=== PATIENT | male | born 1960 | race Caucasian/White ===

== ENCOUNTER → 2023-12-17 07:43 | Outpatient (REF) | payer OTHER, SELFPAY ==
[2023-12-17 08:27] LABS: % Immature Granulocytes 0.3 % (0-0.5); % Lymphocytes 26.6 % (20.5-51.1); % Monocytes 8.2 % (1.7-9.3); % Neutrophils 61.9 % (42.2-75.2); Absolute Basophils 0.1 10^3/uL (0-0.2); Absolute Eosinophils 0.2 10^3/uL (0-0.7); Absolute Lymphocytes 2.9 10^3/uL (1.2-3.4); Absolute Monocytes 0.9 10^3/uL (0.1-0.6); Absolute Neutrophils 6.8 10^3/uL (1.4-6.5); Hematocrit 46.8 % (39.0-52.0); Hemoglobin 16.1 g/dL (13.0-18.0); Mean Corp Hgb Conc. 34.4 g/dL (33.0-37.0); Mean Corpuscular Hgb 30.7 pg (27.0-31.0); Mean Corpuscular Volume 89.3 fL (80.0-94.0); Mean Platelet Volume 8.4 fL (7.4-10.4); Nucleated Red Blood Cells % 0 % (-); Platelet Count 312 10^3/uL (130-400); Red Blood Cell Count 5.24 10^6/uL (4.70-6.10); Red Cell Dist. Width 14.6 % (11.5-14.5)
[2023-12-17 08:37] LABS: ALT (SGPT) 51 U/L (0-50); AST (SGOT) 39 U/L (17-59); Albumin 4.3 g/dl (3.5-5.0); Alkaline Phosphatase 71 U/L (38-126); Blood Urea Nitrogen 24 mg/dl (9-20); Carbon Dioxide 27 mmol/L (22-30); Chloride 104 mmol/L (98-107); Creatine Phosphokinase 54 U/L (55-170); Glucose 133 mg/dl (70-99); Potassium 4.2 mmol/L (3.5-5.1); Sodium 137 mmol/L (135-145); Total Bilirubin 0.6 mg/dl (0.2-1.3); Total Protein 7.2 g/dl (6.3-8.2); eGFR > 60.00
[2023-12-17 09:07] LABS: Erythrocyte Sed Rate 15 mm/hour (0-20)
[2023-12-18 22:01] LABS: Thyroglobulin Antibodies 1.3 IU/mL (0.0-4.0); Thyroid Peroxidase Ab (TPO) 111.4 IU/mL (0.0-9.0)
[2023-12-19 05:35] LABS: F-Actin Antibody IgG 16 Units (0-19); Mitochondrial M2 Ab, IgG 92.4 Units (0.0-24.9)
[2023-12-19 05:41] LABS: CCP Antibody IgG/IgA 121 Units (0-19)
[2023-12-19 12:49] LABS: SSA 52 (Ro)(ENA) Ab, IgG 2 AU/mL (0-40); SSA 60 (Ro)(ENA) Ab, IgG 1 AU/mL (0-40); SSB (La)(ENA) Ab, IgG 6 AU/mL (0-40); Smith (ENA) Antibody, IgG 2 AU/mL (0-40)
[2023-12-19 19:37] LABS: ds-DNA Ab, IgG Reflex To Titer 41 IU (0-24)
== END ==
LOC: REG 07:43
PROVIDERS: ATTENDING PHYSICIAN Internal Medicine Cardiovascular Disease
DX: R74.8 Abnormal levels of other serum enzymes (principal); R76.8 Other specified abnormal immunological findings in serum
CPT/HCPCS: 36415; 80053; 82550; 85025; 85652; 86015; 86140; 86200; 86225; 86235; 86256; 86376; 86381; 86800

== ENCOUNTER → 2024-03-08 06:57 | Outpatient (REF) | payer OTHER, SELFPAY ==
[2024-03-08 07:18] LABS: % Basophils 0.9 % (0-2); % Immature Granulocytes 0.4 % (0-0.5); % Lymphocytes 30.2 % (20.5-51.1); % Neutrophils 57.5 % (42.2-75.2); Absolute Basophils 0.1 10^3/uL (0-0.2); Absolute Eosinophils 0.3 10^3/uL (0-0.7); Absolute Immature Granulocytes 0.1 10^3/uL (0-0.05); Absolute Monocytes 1.2 10^3/uL (0.1-0.6); Absolute Neutrophils 7.6 10^3/uL (1.4-6.5); Hematocrit 44.4 % (39.0-52.0); Hemoglobin 15.2 g/dL (13.0-18.0); Mean Corp Hgb Conc. 34.2 g/dL (33.0-37.0); Mean Corpuscular Hgb 30.9 pg (27.0-31.0); Mean Corpuscular Volume 90.2 fL (80.0-94.0); Mean Platelet Volume 8.7 fL (7.4-10.4); Nucleated Red Blood Cells % 0 % (-); Platelet Count 304 10^3/uL (130-400); Red Blood Cell Count 4.92 10^6/uL (4.70-6.10); Red Cell Dist. Width 14.1 % (11.5-14.5); White Blood Cell Count 13.3 10^3/uL (4.8-10.8)
[2024-03-08 07:48] LABS: ALT (SGPT) 62 U/L (0-50); AST (SGOT) 41 U/L (17-59); Alkaline Phosphatase 75 U/L (38-126); Blood Urea Nitrogen 20 mg/dl (9-20); Calcium 9.9 mg/dl (8.4-10.2); Carbon Dioxide 24 mmol/L (22-30); Chloride 105 mmol/L (98-107); Glucose 137 mg/dl (70-99); HDL Cholesterol 54 mg/dl; LDL Cholesterol, Calculated 43 mg/dl; Potassium 4.2 mmol/L (3.5-5.1); Sodium 139 mmol/L (135-145); Total Bilirubin 0.8 mg/dl (0.2-1.3); Total Cholesterol 116 mg/dl (50-199); Total Protein 6.9 g/dl (6.3-8.2); Triglyceride 95 mg/dl (10-149); Very Low Density Lipoprotein 19 mg/dl (0-30); eGFR > 60.00
[2024-03-08 09:22] LABS: Glycohemoglobin (HgbA1c) 6.8 % (4.0-5.6)
== END ==
LOC: REG 06:57
PROVIDERS: ATTENDING PHYSICIAN Physician Assistant; FAMILY PHYSICIAN Nurse Practitioner Family
DX: E11.9 Type 2 diabetes mellitus without complications (principal)
CPT/HCPCS: 36415; 80053; 80061; 83036; 85025

== ENCOUNTER → 2024-04-22 07:57 | Outpatient (REF) | payer OTHER, SELFPAY | LOC: RAD 07:57 | PROVIDERS: ATTENDING PHYSICIAN Surgery Vascular Surgery; FAMILY PHYSICIAN Nurse Practitioner Family | DX: I74.5 Embolism and thrombosis of iliac artery (principal); I77.9 Disorder of arteries and arterioles, unspecified | CPT/HCPCS: 93922; 93925; 93978 ==

== ENCOUNTER → 2024-05-06 07:29 | Outpatient (REF) | payer OTHER, SELFPAY ==
[2024-05-06 08:37] LABS: % Basophils 0.8 % (0-2); % Immature Granulocytes 0.4 % (0-0.5); % Lymphocytes 27.8 % (20.5-51.1); % Monocytes 8.2 % (1.7-9.3); % Neutrophils 60.8 % (42.2-75.2); Absolute Basophils 0.1 10^3/uL (0-0.2); Absolute Eosinophils 0.2 10^3/uL (0-0.7); Absolute Lymphocytes 3.1 10^3/uL (1.2-3.4); Absolute Monocytes 0.9 10^3/uL (0.1-0.6); Absolute Neutrophils 6.9 10^3/uL (1.4-6.5); Hematocrit 43.8 % (39.0-52.0); Hemoglobin 15.3 g/dL (13.0-18.0); Mean Corp Hgb Conc. 34.9 g/dL (33.0-37.0); Mean Corpuscular Hgb 31.2 pg (27.0-31.0); Mean Corpuscular Volume 89.4 fL (80.0-94.0); Mean Platelet Volume 8.9 fL (7.4-10.4); Nucleated Red Blood Cells % 0 % (-); Platelet Count 273 10^3/uL (130-400); Red Cell Dist. Width 14.2 % (11.5-14.5); White Blood Cell Count 11.3 10^3/uL (4.8-10.8)
[2024-05-06 08:53] LABS: ALT (SGPT) 40 U/L (0-50); AST (SGOT) 30 U/L (17-59); Alkaline Phosphatase 66 U/L (38-126); Blood Urea Nitrogen 17 mg/dl (9-20); Calcium 9.9 mg/dl (8.4-10.2); Carbon Dioxide 24 mmol/L (22-30); Chloride 106 mmol/L (98-107); Glucose 155 mg/dl (70-99); Potassium 4.4 mmol/L (3.5-5.1); Sodium 138 mmol/L (135-145); Total Bilirubin 0.5 mg/dl (0.2-1.3); Total Protein 6.7 g/dl (6.3-8.2); eGFR > 60.00
[2024-05-06 09:05] LABS: Erythrocyte Sed Rate 18 mm/hour (0-20)
[2024-05-09 10:10] LABS: Mitochondrial M2 Ab, IgG 118.7 Units (0.0-24.9)
== END ==
LOC: REG 07:29
PROVIDERS: ATTENDING PHYSICIAN Internal Medicine Rheumatology; FAMILY PHYSICIAN Nurse Practitioner Family
DX: K75.4 Autoimmune hepatitis (principal); R74.8 Abnormal levels of other serum enzymes; R76.8 Other specified abnormal immunological findings in serum
CPT/HCPCS: 36415; 80053; 85025; 85652; 86140; 86225; 86381

== ENCOUNTER → 2024-07-19 07:07 | Outpatient (REF) | payer OTHER, SELFPAY ==
[2024-07-19 07:34] LABS: % Basophils 0.8 % (0-2); % Eosinophils 2.2 % (0-6); % Immature Granulocytes 0.5 % (0-0.5); % Lymphocytes 30.8 % (20.5-51.1); % Monocytes 9.7 % (1.7-9.3); Absolute Basophils 0.1 10^3/uL (0-0.2); Absolute Eosinophils 0.3 10^3/uL (0-0.7); Absolute Immature Granulocytes 0.1 10^3/uL (0-0.05); Absolute Lymphocytes 3.6 10^3/uL (1.2-3.4); Absolute Monocytes 1.1 10^3/uL (0.1-0.6); Absolute Neutrophils 6.6 10^3/uL (1.4-6.5); Hematocrit 45.8 % (39.0-52.0); Hemoglobin 15.7 g/dL (13.0-18.0); Mean Corp Hgb Conc. 34.3 g/dL (33.0-37.0); Mean Corpuscular Hgb 30.8 pg (27.0-31.0); Mean Corpuscular Volume 89.8 fL (80.0-94.0); Nucleated Red Blood Cells % 0 % (-); Platelet Count 239 10^3/uL (130-400); Red Cell Dist. Width 14.9 % (11.5-14.5); White Blood Cell Count 11.8 10^3/uL (4.8-10.8)
[2024-07-19 08:36] LABS: ALT (SGPT) 47 U/L (0-50); AST (SGOT) 45 U/L (17-59); Albumin 4.2 g/dl (3.5-5.0); Alkaline Phosphatase 61 U/L (38-126); Blood Urea Nitrogen 20 mg/dl (9-20); Calcium 9.7 mg/dl (8.4-10.2); Carbon Dioxide 24 mmol/L (22-30); Chloride 100 mmol/L (98-107); Glucose 163 mg/dl (70-99); Potassium 4.4 mmol/L (3.5-5.1); Sodium 139 mmol/L (135-145); Total Bilirubin 0.7 mg/dl (0.2-1.3); eGFR > 60.00
[2024-07-19 09:23] LABS: Glycohemoglobin (HgbA1c) 6.8 % (4.0-5.6)
== END ==
LOC: REG 07:07
PROVIDERS: ATTENDING PHYSICIAN Physician Assistant; FAMILY PHYSICIAN Nurse Practitioner Family
DX: E11.65 Type 2 diabetes mellitus with hyperglycemia (principal)
CPT/HCPCS: 36415; 80053; 83036; 85025

== ENCOUNTER 2024-09-27 16:09 | Inpatient (IN) | payer OTHER, SELFPAY ==
[2024-09-27] VITALS (20 sets, daily range): BP systolic 111–157; BP diastolic 62–105; BMI 22.7
--- NOTE | 2024-09-27 09:40 | ED.GENMED ---
ED Provider Triage
<Radha Hinton PA-C - Last Filed: 09/27/24 16:16>
-
Patient seen by provider in Triage?: Seen in Triage
Attestation: A medical screening examination has been initiated by a qualified medical provider. Based on the assessment performed at this time, it has been determined that an emergent medical condition may exist and the patient has been informed
that further medical evaluation and possible additional diagnostic testing may be needed.
HPI: 64yoM here with L leg pain. Did yard work 4 days ago. Started with leg cramping the next day. Pain mostly in foot but having calf pain. Hx of DVT in 2022 requiring thrombectomy, no longer on anticoagulation. No CP/SOB.
GENERAL: Alert , in no apparent distress
EYE: No visual abnormalities.
NECK: Trachea midline
ENT: No visible abnormalities.
LUNGS: No acute respiratory distress
NEUROLOGICAL: Alert and oriented
SKIN: Skin intact. No visible changes.
MUSCULOSKELETAL: Moving extremities normally
PSYCH: Normal and appropriate interaction.
This is a medical evaluation conducted in person to initiate diagnostic evaluation and provide initial therapeutics. Please see further documentation by the treating clinician.
Venous duplex and L foot x-rays ordered.
History of Present Illness
<Radha Hinton PA-C - Last Filed: 09/27/24 16:16>
General
Chief Complaint: Musculo-Skeletal Complaint
Source: patient
Time Seen by Provider: 09/27/24 10:52
History of Present Illness
History of Present Illness:
64yoM with a history of peripheral artery disease presenting for evaluation of left leg and foot pain x 3 days. Patient was chopping wood prior to his pain starting. He initially had a cramping pain in his left lower leg. His pain is now
primarily in the left although he continues to have some discomfort in the calf. He denies any paresthesias. No chest pain or shortness of breath. Patient has a history of peripheral artery disease and underwent 'cutdown left common femoral
artery, Left iliac thromboembolectomy, Left lower extremity thromboembolectomy' in 2022. He is not longer on anticoagulation.
Past History
<Radha Hinton PA-C - Last Filed: 09/27/24 16:16>
Past History
ED Past Medical History: None
ED Past Surgical History: None
Social History
Tobacco: Smoker
Personal:
Living: with family
Employment: Employed
Phy Exam
<Radha Hinton PA-C - Last Filed: 09/27/24 16:16>
General Physical Exam
General Presentation: well appearing and no apparent distress
General age: appears stated age
General Skin: warm and dry
General Habitus: normal
General Mental: alert
General Hydration: appears well hydrated
ENT Exam
ENT Exam: normocephalic
Pulmonary Exam
Pulmonary Exam: no respiratory distress
[place] Coma Scale
Eye Opening: Spontaneous
Verbal Response: Oriented
Motor Response: Obeys Commands
GCS Total Score: 15
Musculoskeletal Exam
Musculoskeletal Exam: other (L foot: Somewhat cool to touch. Sensation and motor function intact. Unable to obtain DP or PT pulse with doppler. No pitting edema to extremity.)
Skin Exam
Skin Exam: normal color and warm/dry
Psychiatric Exam
Psychiatric Exam: normal mood/affect
Course
<Radha Hinton PA-C - Last Filed: 09/27/24 16:16>
Orders/Labs/Results
Orders:
Orders
09/27/24 09:43
CR Foot - Left Min 3 Views Urgent
Comment:
Reason For Exam: Pain
Venous Doppler Lwr Ext Left [US Periph Venous LOWER Ext LT] Urgent
Comment:
Reason For Exam: L calf pain
09/27/24 11:58
CT Abd Aorta Angio W/ Run Off Urgent
Comment:
Reason For Exam: L leg pain pain, hx of PAD
09/27/24 12:08
Complete Blood Count/With Diff Urgent
Comprehensive Metabolic Panel Urgent
PTT Urgent
Prothrombin Time Urgent
09/27/24 12:24
Vascular Surgery Consult Urgent
Consulting Provider: Mansoor Wilkerson III
Was physician already notified: Yes
09/27/24 13:46
Heparin 6,000 units IV NOW STA
Pharmacy Request to Place See Dose Instructions PO NOW STA
Discontinue all Active Warfarin orders?: Yes
Nursing to Place Non Medication Order As Directed
Physician Order: PTT 6 hours after initial start of Heparin infusion
Above order entered?: Yes
09/27/24 13:58
Heparin 6,000 units IV PRN PRN
09/27/24 13:59
Heparin 3,000 units IV PRN PRN
09/27/24 14:00
Heparin 09353 Units/250 ml 25,000 units in 250 ml IV PER PROTOCOL
Weight to be used for heparin protocol in kilograms (kg):: 75.4
Protocol:: DVT/PE
PTT Goal Range to be used:: PTT 73 to 111 seconds
Order type:: Initial
INITIAL Infusion Dose (UNITS/KG/hr) & then follow protocol:: 18 units/kg/hr
Infusion Dose in UNITS/hr & then follow protocol (UNITS/hr):: 1,400
INFUSION RATE in mL/hr & then follow protocol (mL/hr):: 14
For DVT/PE algorithm, re-bolus for low PTT?: Yes
PTT less than or equal to 64 seconds:: Re-bolus 80 units/kg (max 10,000units). Increase by 300 units/hr
(+ 3mL/hr)
PTT 64.1 to 72.9 seconds:: Re-bolus 40 units/kg (max 5,000 units). Increase by 200 units/hr
(+ 2mL/hr)
PTT 73 to 111 seconds:: Target Range. No change in rate.
PTT 111.1 to 130.9 seconds:: Decrease rate by 200 units/hr (- 2 mL/hr)
PTT 131 to 199.9 seconds:: HOLD for 1 hr. Then decrease by 200 units/hr (- 2mL/hr)
PTT greater than or equal to 200 seconds:: HOLD for 2 hrs & Notify Provider. Then decrease by 300 units/hr
(- 3mL/hr)
Lab follow-up:: Each change, PTT q6h until 2 consecutive are therapeutic. Then
PTT daily.
Pharmacy Request to Place See Dose Instructions IV DIRECTED
09/27/24 14:51
Admit/Transfer Patient As Directed
Co-Sign Provider:
Level of Care: Inpatient admission
Assign to:: Medical/Surgical
Physician / Group: Irwin Smart
Diagnosis: occluded left iliac artery and stent
Reason for Hospitalization: occluded left iliac artery and stent
Expected length of stay greater than two midnights?: Yes
ELOS- Estimated Length of Stay in days: 3
I certify the patient meets the requirements for IP care: Yes
PRN Pain Medication Management As Directed
May give lesser potent ordered pain med per pt: Yes
preference::
Protocol:: Medication orders for pain may be administered in a
manner that supports deferring to patient preference
when the pt is:
- Requesting an ordered lesser potent pain medication.
Least to most potent pain medications are defined
as: acetaminophen < NSAID < tramadol < opioids
(morphine, oxycodone, hydromorphone).
- Requesting a lesser dose of the same medication IF
ORDERED.
- Requesting a less intrusive route of administration
if both routes are prescribed by the provider (PO <
IV).
09/27/24 14:52
Code Status As Directed
Resuscitation Status: Full Code
09/27/24 15:30
Fentanyl Citrate/Pf [Sublimaze] 100 mcg .ROUTE .STK-MED ONE
Midazolam HCl [Versed] 2 mg .ROUTE .STK-MED ONE
Propofol [Diprivan] 20 ml .ROUTE .STK-MED
Rocuronium [place] [Rocuronium] 50 mg .ROUTE .STK-MED ONE
09/27/24 15:31
Ondansetron Injectable [Zofran] 4 mg .ROUTE .STK-MED ONE
Ondansetron Injectable [Zofran] 4 mg .ROUTE .STK-MED ONE
Phenylephrine HCl/0.9% NaCl [Rubin-Synephrine] 1,000 mcg .ROUTE .STK-MED ONE
09/27/24 15:59
Heparin Sodium,Porcine/Ns/Pf [Heparin 2000 Units/1000 ml] 2,000 unit in 1,000 ml .ROUTE .STK-MED
Lidocaine HCl/Pf [Xylocaine-Mpf 1% Vial] 50 mg .ROUTE .STK-MED ONE
09/27/24 16:05
Alteplase 4 mg/16 mL in NSS at 1 mg/hr via INF CATH Alteplase [Cathflo/Activase] 4 mg 0.9% Sodium Chloride 50 ml [Nss] 12 ml Syringe [Syringe-Pump] 0 ml INF CATH Q4H
09/27/24 20:27
PTT Routine
Abnormal Lab Results
09/27/24
12:08
WBC 13.2 H 10^3/uL
(4.8-10.8)
RBC 4.47 L 10^6/uL
(4.70-6.10)
MCH 32.4 H pg
(27.0-31.0)
Abs Immat Gran (auto) 0.1 H 10^3/uL
(0-0.05)
Absolute Neuts (auto) 9.2 H 10^3/uL
(1.4-6.5)
Absolute Monos (auto) 1.5 H 10^3/uL
(0.1-0.6)
Immature Gran % 0.7 H %
(0-0.5)
Lymphocytes % 17.5 L %
(20.5-51.1)
Monocytes % 11.1 H %
(1.7-9.3)
Creatinine 0.6 L mg/dL
(0.7-1.3)
Glucose 150 H mg/dl
(70-99)
09/27/24 12:08
09/27/24 12:08
Vital Signs
Initial and Last Documented VS:
Initial Vital Signs
Temp Pulse Resp BP Pulse Ox
98.4 F 114 20 157/105 99
09/27/24 09:40 09/27/24 09:40 09/27/24 09:40 09/27/24 09:40 09/27/24 09:40
Last Documented Vital Signs
Temp Pulse Resp BP Pulse Ox
98.4 F 91 18 137/79 99
09/27/24 09:40 09/27/24 14:54 09/27/24 14:54 09/27/24 14:54 09/27/24 14:54
<Dre Larson, DO - Last Filed: 09/27/24 12:08>
Orders/Labs/Results
Orders:
Orders
09/27/24 09:43
CR Foot - Left Min 3 Views Urgent
Comment:
Reason For Exam: Pain
Venous Doppler Lwr Ext Left [US Periph Venous LOWER Ext LT] Urgent
Comment:
Reason For Exam: L calf pain
09/27/24 11:58
CT Abd Aorta Angio W/ Run Off Urgent
Comment:
Reason For Exam: L leg pain pain, hx of PAD
09/27/24 12:08
Complete Blood Count/With Diff Urgent
Comprehensive Metabolic Panel Urgent
PTT Urgent
Prothrombin Time Urgent
09/27/24 12:24
Vascular Surgery Consult Urgent
Consulting Provider: Mansoor Wilkerson III
Was physician already notified: Yes
09/27/24 13:46
Heparin 6,000 units IV NOW STA
Pharmacy Request to Place See Dose Instructions PO NOW STA
Discontinue all Active Warfarin orders?: Yes
Nursing to Place Non Medication Order As Directed
Physician Order: PTT 6 hours after initial start of Heparin infusion
Above order entered?: Yes
09/27/24 13:58
Heparin 6,000 units IV PRN PRN
09/27/24 13:59
Heparin 3,000 units IV PRN PRN
09/27/24 14:00
Heparin 50702 Units/250 ml 25,000 units in 250 ml IV PER PROTOCOL
Weight to be used for heparin protocol in kilograms (kg):: 75.4
Protocol:: DVT/PE
PTT Goal Range to be used:: PTT 73 to 111 seconds
Order type:: Initial
INITIAL Infusion Dose (UNITS/KG/hr) & then follow protocol:: 18 units/kg/hr
Infusion Dose in UNITS/hr & then follow protocol (UNITS/hr):: 1,400
INFUSION RATE in mL/hr & then follow protocol (mL/hr):: 14
For DVT/PE algorithm, re-bolus for low PTT?: Yes
PTT less than or equal to 64 seconds:: Re-bolus 80 units/kg (max 10,000units). Increase by 300 units/hr
(+ 3mL/hr)
PTT 64.1 to 72.9 seconds:: Re-bolus 40 units/kg (max 5,000 units). Increase by 200 units/hr
(+ 2mL/hr)
PTT 73 to 111 seconds:: Target Range. No change in rate.
PTT 111.1 to 130.9 seconds:: Decrease rate by 200 units/hr (- 2 mL/hr)
PTT 131 to 199.9 seconds:: HOLD for 1 hr. Then decrease by 200 units/hr (- 2mL/hr)
PTT greater than or equal to 200 seconds:: HOLD for 2 hrs & Notify Provider. Then decrease by 300 units/hr
(- 3mL/hr)
Lab follow-up:: Each change, PTT q6h until 2 consecutive are therapeutic. Then
PTT daily.
Pharmacy Request to Place See Dose Instructions IV DIRECTED
09/27/24 14:51
Admit/Transfer Patient As Directed
Co-Sign Provider:
Level of Care: Inpatient admission
Assign to:: Medical/Surgical
Physician / Group: Irwin Smart
Diagnosis: occluded left iliac artery and stent
Reason for Hospitalization: occluded left iliac artery and stent
Expected length of stay greater than two midnights?: Yes
ELOS- Estimated Length of Stay in days: 3
I certify the patient meets the requirements for IP care: Yes
PRN Pain Medication Management As Directed
May give lesser potent ordered pain med per pt: Yes
preference::
Protocol:: Medication orders for pain may be administered in a
manner that supports deferring to patient preference
when the pt is:
- Requesting an ordered lesser potent pain medication.
Least to most potent pain medications are defined
as: acetaminophen < NSAID < tramadol < opioids
(morphine, oxycodone, hydromorphone).
- Requesting a lesser dose of the same medication IF
ORDERED.
- Requesting a less intrusive route of administration
if both routes are prescribed by the provider (PO <
IV).
09/27/24 14:52
Code Status As Directed
Resuscitation Status: Full Code
09/27/24 15:30
Fentanyl Citrate/Pf [Sublimaze] 100 mcg .ROUTE .STK-MED ONE
Midazolam HCl [Versed] 2 mg .ROUTE .STK-MED ONE
Propofol [Diprivan] 20 ml .ROUTE .STK-MED
Rocuronium [place] [Rocuronium] 50 mg .ROUTE .STK-MED ONE
09/27/24 15:31
Ondansetron Injectable [Zofran] 4 mg .ROUTE .STK-MED ONE
Ondansetron Injectable [Zofran] 4 mg .ROUTE .STK-MED ONE
Phenylephrine HCl/0.9% NaCl [Rubin-Synephrine] 1,000 mcg .ROUTE .STK-MED ONE
09/27/24 15:59
Heparin Sodium,Porcine/Ns/Pf [Heparin 2000 Units/1000 ml] 2,000 unit in 1,000 ml .ROUTE .STK-MED
Lidocaine HCl/Pf [Xylocaine-Mpf 1% Vial] 50 mg .ROUTE .STK-MED ONE
09/27/24 16:05
Alteplase 4 mg/16 mL in NSS at 1 mg/hr via INF CATH Alteplase [Cathflo/Activase] 4 mg 0.9% Sodium Chloride 50 ml [Nss] 12 ml Syringe [Syringe-Pump] 0 ml INF CATH Q4H
09/27/24 20:27
PTT Routine
Abnormal Lab Results
09/27/24
12:08
WBC 13.2 H 10^3/uL
(4.8-10.8)
RBC 4.47 L 10^6/uL
(4.70-6.10)
MCH 32.4 H pg
(27.0-31.0)
Abs Immat Gran (auto) 0.1 H 10^3/uL
(0-0.05)
Absolute Neuts (auto) 9.2 H 10^3/uL
(1.4-6.5)
Absolute Monos (auto) 1.5 H 10^3/uL
(0.1-0.6)
Immature Gran % 0.7 H %
(0-0.5)
Lymphocytes % 17.5 L %
(20.5-51.1)
Monocytes % 11.1 H %
(1.7-9.3)
Creatinine 0.6 L mg/dL
(0.7-1.3)
Glucose 150 H mg/dl
(70-99)
09/27/24 12:08
09/27/24 12:08
Vital Signs
Initial and Last Documented VS:
Initial Vital Signs
Temp Pulse Resp BP Pulse Ox
98.4 F 114 20 157/105 99
09/27/24 09:40 09/27/24 09:40 09/27/24 09:40 09/27/24 09:40 09/27/24 09:40
Last Documented Vital Signs
Temp Pulse Resp BP Pulse Ox
98.4 F 91 18 137/79 99
09/27/24 09:40 09/27/24 14:54 09/27/24 14:54 09/27/24 14:54 09/27/24 14:54
<Radha Hinton PA-C - Last Filed: 09/27/24 16:16>
MDM/Problems Addressed
Differential Diagnosis Includes:
64yoM here with L leg and foot pain x 3 days that started after chopping wood. Significant history of PAD with thrombectomy last year. L foot is cool to touch. Unable to obtain PT/DP pulse with Doppler. Differential diagnosis includes but is not
limited to: Arterial occlusion, DVT, musculoskeletal pain
Initial ED plan: Venous duplex obtained in triage which is negative for DVT. Left foot x-rays are negative for fracture. Will obtain labs, CTA with runoff, and vascular consult.
<Radha Hinton PA-C - Last Filed: 09/27/24 16:16>
*Critical Care Note
Total Time (30-74mins, 75-104mins- exclusive of procedures): Not Applicable
<Radha Hinton PA-C - Last Filed: 09/27/24 16:16>
Update Note
Update Note:
CTA reveals 'Occlusion of the left common iliac artery at its origin, involving the left common iliac artery stent. This occlusion extends throughout the left external iliac artery.' Patient evaluated by vascular surgery team. Heparin gtt initiated.
Plan for thrombectomy vs. lytic catheter placement. He was admitted for further management.
ED Attending Note
<Radha Hinton PA-C - Last Filed: 09/27/24 16:16>
-
Portions of this chart may have been created with voice recognition software.� Occasional wrong word or��sound alike� substitutions may have occurred due to the inherent limitations of voice recognition software.
<Dre Larson DO - Last Filed: 09/27/24 12:08>
ED Attending Note
Patient seen and examined by attending physician: Yes
I performed the substantive portion of visit, reviewed & personally made and approve the management plan that is documented in note by myself or LEHA.: Yes
ED Attending Note:
Seen with PA examined independently, prior records briefly reviewed diabetic hypertensive peripheral vascular disease status post thrombectomy by Dr. Wilkerson a few years ago presents with similar but not as severe complaints of his left lower
extremity calf anterior lower leg thigh and foot unable to appreciate a pulse in his foot appears slightly cool, will check labs CT angio,
Discharge Plan
Departure
Patient Disposition: Admit
Date of Disposition: 09/27/24
Time of Disposition: 13:52
Presentation/result/management discussed w/ accepting MD/DO: Hospitalist
Discharge Problem:
Occlusion of stent of peripheral artery
Interventions
Interventions:
*Risk Screen - Suicide Last Done: 09/27/24 12:24
*General Assessment Last Done: 09/27/24 12:24
*Neglect/Abuse Screening Last Done: 09/27/24 12:24
ED- Fall Risk Assessment Last Done: 09/27/24 16:03
*ED COVID-19 Vaccine History Last Done: 09/27/24 12:24
*Nursing Disposition Last Done: 09/27/24 16:03
ED-Musculoskeletal Assessment Last Done: 09/27/24 12:24
[2024-09-27 12:22] LABS: % Basophils 0.6 % (0-2); % Eosinophils 0.1 % (0-6); % Immature Granulocytes 0.7 % (0-0.5); % Lymphocytes 17.5 % (20.5-51.1); % Monocytes 11.1 % (1.7-9.3); Absolute Basophils 0.1 10^3/uL (0-0.2); Absolute Immature Granulocytes 0.1 10^3/uL (0-0.05); Absolute Lymphocytes 2.3 10^3/uL (1.2-3.4); Absolute Monocytes 1.5 10^3/uL (0.1-0.6); Absolute Neutrophils 9.2 10^3/uL (1.4-6.5); Hematocrit 41.7 % (39.0-52.0); Hemoglobin 14.5 g/dL (13.0-18.0); Mean Corp Hgb Conc. 34.8 g/dL (33.0-37.0); Mean Corpuscular Hgb 32.4 pg (27.0-31.0); Mean Corpuscular Volume 93.3 fL (80.0-94.0); Mean Platelet Volume 8.8 fL (7.4-10.4); Nucleated Red Blood Cells % 0 % (-); Platelet Count 230 10^3/uL (130-400); Red Blood Cell Count 4.47 10^6/uL (4.70-6.10); Red Cell Dist. Width 14.4 % (11.5-14.5); White Blood Cell Count 13.2 10^3/uL (4.8-10.8)
[2024-09-27 12:36] LABS: APTT 26.7 Sec (23.4-35.0); INR 0.96; PT 13.1 Sec (11.4-14.6)
[2024-09-27 12:39] LABS: ALT (SGPT) 34 U/L (0-50); AST (SGOT) 39 U/L (17-59); Alkaline Phosphatase 46 U/L (38-126); Blood Urea Nitrogen 14 mg/dl (9-20); Calcium 9.8 mg/dl (8.4-10.2); Carbon Dioxide 28 mmol/L (22-30); Chloride 103 mmol/L (98-107); Glucose 150 mg/dl (70-99); Potassium 4.1 mmol/L (3.5-5.1); Sodium 140 mmol/L (135-145); Total Bilirubin 0.7 mg/dl (0.2-1.3); Total Protein 6.9 g/dl (6.3-8.2); eGFR > 60.00
--- NOTE | 2024-09-27 13:51 | CON.VAS ---
Addendum entered and electronically signed by Mansoor Wilkerson III, MD 09/27/24 16:27:
This patient was seen and examined with ISAC Theodore and ISAC Nunez. I agree with the history and physical exam as well as the assessment and plan. I have the following additions:
64-year-old male known to me from previous intervention for acute limb ischemia
I follow him as an outpatient.
Was treated with systemic anticoagulation but this was stopped ~ May
Now with 3 days of left calf and foot cramping
CT angiogram demonstrates occlusion of left iliac stents and reconstitution of the common femoral artery
Patient has a posterior tibial Doppler signal on the right and is grossly intact motor/sensory in the right leg and foot
Planning for OR no for arteriogram and endovascular intervention with possible initiation of arterial thrombolysis
Discussed plan with patient in detail. The technical aspects of the proposed procedure were discussed with him in detail. The benefits and rationale for this approach were discussed with him in detail. Operative risks were discussed with him in
detail including but not limited to bleeding, infection, contrast nephropathy, distal embolization, need for open surgery/open conversion, heart attack, continued ischemia and the need for additional procedures.
He expressed a clear understanding of our conversation and agrees to proceed with surgery as detailed above.
Signed:
Mansoor Wilkerson III, MD
[facility] Vascular Surgery
[phone] (wzyu)
Original Note:
Consultation
Consultation Request
Performing Provider: Rock
Reason for Consultation: New onset left lower extremity cramping/coolness
Medical History
-
Chief Complaint: Left foot and calf cramping
History of Present Illness:
64-year-old male with past medical history CAD with PCI April 2024, LV thrombus, left lower extremity critical limb ischemia with left femoral cutdown, thromboembolectomy involving left popliteal and tibial arteries, stenting of the left common and
external iliac arteries by Dr. Wilkerson on 02/17/2023. Patient presented to the ER today for 3 days of left calf and foot cramping. Patient states that is increasingly worsening since Thursday when he did some yard work.
Patient had been on Eliquis and aspirin when discharged after his thrombectomy. In April he was switched to Plavix and aspirin after having a PCI by Dr. Null. Patient notes in May he was again switched to just aspirin alone. In that time he
did have a follow-up echo that showed resolution of his LV thrombus. He is unaware if the cause of the thrombus was noted.
Vascular consult for acute limb ischemia. Patient seen at bedside in the ER with Dr. Wilkerson. Patient states his calf feels slightly tight. Still has motor function and sensation to the left foot. Nonpalpable left femoral pulse, Doppler signal left
PT, no signal left DP.
Past Medical History
Past Medical History: CAD (PCI)
Past Surgical History: Orthopedic and Other ( Cutdown/exposure of left common femoral artery, Left iliac thromboembolectomy via femoral artery exposure, Left lower extremity thromboembolectomy involving left popliteal and tibial arteries via femoral
artery exposure, Retrograde balloon angioplasty and stenting of left common and ext)
Social History
Personal:
Living: With Family
Employment: Employed
Family History
Family History: Diabetes
Allergies / Home Medications
Allergy/AdvReac Type Severity Reaction Status Date / Time
No Known Allergies Allergy Verified 09/27/24 09:45
�Medication �Instructions �Recorded �Confirmed �Type
lisinopril 5 mg tablet 5 mg PO DAILY heart 02/19/23 06/16/23 Rx
disease/condition #30 tabs
metoprolol succinate 25 mg 25 mg PO DAILY Heart 02/19/23 06/16/23 Rx
tablet,extended release 24 hr disease/condition #30 tabs
food supplemt, lactose-reduced 1 ea PO Q48H 06/02/23 06/16/23 History
(Protein Nutritional Shake oral
liquid)
insulin aspart U-100 100 unit/mL 7 - 8 unit SC AC Diabetes 06/02/23 06/16/23 History
(3 mL) subcutaneous pen (Novolog
FlexPen U-100 Insulin aspart)
insulin glargine 100 unit/mL (3 20 unit SC HS Diabetes 06/02/23 06/16/23 History
mL) subcutaneous pen (Basaglar
KwikPen U-100 Insulin)
aspirin 81 mg chewable tablet 81 mg PO DAILY Heart 06/16/23 06/16/23 Rx
disease/condition #30 tabs
atorvastatin 40 mg tablet 40 mg PO DAILY #90 tabs 06/16/23 Rx
clopidogrel 75 mg tablet 75 mg PO DAILY #90 tabs 06/16/23 Rx
Review of Systems
-
History Source: Patient
All other systems: Negative unless noted
Constitutional: Reports No Symptoms
Respiratory: Reports No Symptoms
Cardiac: Reports No Symptoms
Vascular: Reports Leg Pain / Claudication
Abdomen/GI: Reports No Symptoms
: Reports No Symptoms
Musculoskeletal: Reports Muscle Stiffness
Skin: Reports Other (Cool left foot)
Physical Exam
Vital Signs
Temp Pulse Resp BP Pulse Ox
98.4 F 114 18 157/105 99
09/27/24 09:40 09/27/24 09:40 09/27/24 12:24 09/27/24 09:40 09/27/24 09:40
Lab Results
09/27/24 12:08
09/27/24 12:08
Physical Exam
General: No Apparent Distress
HEENT: Normocephalic and Atraumatic
Respiratory: Non Labored Respirations
Cardiac: Negative JVD
GI: Soft, Non Tender and Non Distended
Musculoskeletal: No Clubbing, No Cyanosis and No Edema
Skin: Other (Left foot cool, slightly pale)
Neuro: Awake, Alert and Oriented
Psych: Calm
Pulses: Left Femoral: Doppler (Nonpalpable) and Left Posterior Tibial: Doppler
Assessment / Plan
-
64-year-old male with cool left foot, cramping of the foot and calf
History of acute limb ischemia with thromboembolectomy, stenting in [address] Wilkerson. LV thrombus noted on that admission
CT scan suggests occluded left iliac stent
Plan:
� N.p.o. for OR. Will add patient on for lysis catheter placement possible penumbra
� Admit to hospitalist
� Start heparin drip
Data Reviewed
-
CT Scan: Discussed with Patient
Labs: Labs Reviewed by me
--- NOTE | 2024-09-27 14:16 | HPS.HSE ---
Family Physician
-
Family Physician: ISAC Berrios
Chief Complaint
-
Left foot pain
History of Present Illness
Patient is a 64-year-old male with past medial history significant for PAD, hyperlipidemia, CAD, hypertension, type 2 diabetes and hx thromboembolism of lower left extremity who presented to [facility] ED for evaluation following 3-4 days of lower
left foot and leg pain. Patient stated that Thursday he spent the day doing yard work including chopping wood. When he woke on Thursday he noticed pain in calf and foot when ambulating, he attributed to previous days strenuous work in yard. He claims
that discomfort ordinally started to improve each day, but this morning was still having discomfort and was unable to palpate pulse in left leg. Patient recalls in January 2023 with acute limb ischemia with a background of chronic peripheral arterial
occlusive disease hospitalization and intervention being told if this ever happens again go directly to ED for treatment. Patient denies any chest pain, cough, shortness of breath, palpitations, or dizziness.
Medical History
Past Medical History
Past Medical History: Reports Other
Additional Past Medical History:
PAD
hyperlipidemia
CAD
hypertension
type 2 diabetes
Past Surgical History: Reports Other
Additional Past Surgical History:
PCI (05/2023)
Thromboembolism and stenting of lower left extremity artery (02/17/2023)
Knee surgery
Social History
Tobacco: Smoker (currently smokes approximately 0.5 pack a cigarettes a week)
Alcohol: Occasional
Drug: None
Living: Alone
Employment: Employed
Family History
Family History: Not pertinent
Allergies / Home Medications
Allergies reflects when Allergies were last updated in [facility].
Home Medications with original date entered in [facility]
Allergy/Medication List:
Allergies
Allergy/AdvReac Type Severity Reaction Status Date / Time
No Known Allergies Allergy Verified 09/27/24 09:45
Home Medications
lisinopril 5 mg tablet 5 mg PO DAILY heart disease/condition #30 tabs 02/19/23
insulin aspart U-100 100 unit/mL (3 mL) subcutaneous pen (Novolog FlexPen U-100 Insulin aspart) 7 unit SC AC Diabetes 06/02/23
insulin glargine 100 unit/mL (3 mL) subcutaneous pen (Basaglar KwikPen U-100 Insulin) 8 unit SC HS Diabetes 06/02/23
aspirin 81 mg tablet,delayed release 81 mg PO DAILY 09/27/24
cholecalciferol (vitamin D3) 25 mcg (1,000 unit) tablet (Vitamin D3) 25 mcg PO DAILY 09/27/24
cyanocobalamin (vitamin B-12) 1,000 mcg tablet 1,000 mcg PO DAILY 09/27/24
metoprolol succinate 50 mg tablet,extended release 24 hr 50 mg PO DAILY 09/27/24
rosuvastatin 20 mg tablet 20 mg PO HS 09/27/24
tirzepatide 5 mg/0.5 mL subcutaneous pen injector (Mounjaro) 5 mg SC SA 09/27/24
Review of Systems
-
History Source: Patient
Constitutional: Reports No Symptoms
EENT: Reports No Symptoms
Respiratory: Reports No Symptoms
Cardiac: Reports No Symptoms
Abdomen/GI: Reports No Symptoms
: Reports No Symptoms
Musculoskeletal: Reports Other (left leg and foot pain with ambulation and at rest)
Skin: Reports No Symptoms
Neurological: Reports No Symptoms
Endocrine: Reports No Symptoms
Hematologic/Lymphatic: Reports No Symptoms
Psych: Reports No Symptoms
Physical Exam
Vital Signs
Vital Signs
Temp Pulse Resp BP Pulse Ox
98.4 F 114 18 157/105 99
09/27/24 09:40 09/27/24 09:40 09/27/24 12:24 09/27/24 09:40 09/27/24 09:40
Physical Exam
General: Well Developed, Well Nourished, No Apparent Distress, Comfortable and Conversant
HEENT: NormoCephalic, Moist mucous membranes, Atraumatic, [place] Conjunctivae, Nose Appears Normal and Ears Appear Normal
Respiratory: Clear
Cardiac: S1/S2, Regular Rhythm and Other (absent pulses in left lower extremity ); No Murmur, Rub or Gallop
Breast: Deferred by me
GI: Soft, Non Tender, Non Distended and Normal Bowel Sounds; No Organomegaly
Rectal: Deferred by Provider
Genito-urinary: Deferred by me
Musculoskeletal: No Clubbing, No Cyanosis and No Edema
Skin: Warm and IV/Catheter Site; No Rash
Neuro: Awake, Alert, AO x 3 and Nonfocal/grossly intact
Hematologic/Lymphatic: No Lymphadenopathy
Psych: Calm and Intact Judgment/Insight
Laboratory Results
-
09/27/24 12:08
09/27/24 12:08
Laboratory Results
PT 13.1 Sec (11.4-14.6) 09/27/24 12:08
INR 0.96 09/27/24 12:08
APTT 26.7 Sec (23.4-35.0) 09/27/24 12:08
Total Bilirubin 0.7 mg/dl (0.2-1.3) 09/27/24 12:08
AST 39 U/L (17-59) 09/27/24 12:08
ALT 34 U/L (0-50) 09/27/24 12:08
Alkaline Phosphatase 46 U/L (38-126) 09/27/24 12:08
Data Reviewed
-
Diagnostic Radiology: Report Reviewed by me (Left foot x-ray: No evidence of acute fracture or dislocation)
CT Scan: Report Reviewed by me (Abd: There is occlusion of the left common iliac artery at its origin, involving the left common iliac artery stent. This occlusion extends throughout the left external iliac artery. Opacification of the left common
femoral artery due to collateral flow. See above narrative for additional findings)
Ultrasound: Report Reviewed by me (LLE US: No evidence of deep venous thrombosis of the left lower extremity)
Lab Data: Labs Reviewed by me (WBC 13.2, )
Impression/Plan
-
IMPRESSION/PLAN:
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
#PAD
Abd CT: There is occlusion of the left common iliac artery at its origin, involving the left common iliac artery stent. This occlusion extends throughout the left external iliac artery.
Opacification of the left common femoral artery due to collateral flow.
See above narrative for additional findings.
- Admit to
- NPO for OR
- Heparin gtt (DVT/PE protocol)
- Consult Vascular Surgery
#CAD
#hyperlipidemia
- continue aspirin and rosuvastatin
#hypertension
- continue lisinopril and metoprolol
#type 2 diabetes
- continue insulin aspart and insulin glargine
- Accuchecks AC & HS
- SSI
Code Status: Full code
DVT Prophylaxis: Heparin gtt
[2024-09-27] MEDS: HEPARIN 6000 UNITS IV (14:24)
[2024-09-27] MEDS: HEPARIN 25000 UNITS/250 ML IV (14:25)
[2024-09-27 16:17] LABS: Glucose - Point of Care 152 mg/dl (70-99)
--- NOTE | 2024-09-27 16:27 | W.SUR.PREOP ---
Pre-Operative Surgical Note
-
I have examined this patient prior to the performance of the scheduled procedure.
The patient's condition is unchanged from the time of the current History and
Physical and the patient is able to undergo the scheduled procedure.
[2024-09-27 16:46] LABS: ACT-LR - POC 168 Seconds (116-155)
[2024-09-27] MEDS: DEMEROL 12.5 MG IV ×2 (17:48→18:08)
[2024-09-27 17:50] LABS: Glucose - Point of Care 158 mg/dl (70-99)
--- NOTE | 2024-09-27 17:59 | OR.RPT ---
Operative Report
Operative Report
Date of Operation: 09/27/2024
Pre Op Diagnosis: Acute limb ischemia, left lower extremity
Post Op Diagnosis: Acute limb ischemia left lower extremity
Procedure:
1.) Selective catheterization of third order lower extremity artery
2.) Placement of 5 Finnish 30 cm Cragg Armand infusion catheter
3.) Diagnostic aortobiiliac arteriogram
4.) Diagnostic left lower extremity arteriogram
5.) Ultrasound-guided percutaneous access to the right common femoral artery
Surgeon: Mansoor Wilkerson III, MD
Counter Clerk [employer]: Alejandro Quintana MD PhD, PGY2
Anesthesia: Sedation with local
Fluoroscopy:
9.3 min
80 mGy
24.98 Gy.cm2
Complications: None
Estimated Blood Loss: Less than 20 cc
History and Indications for Procedure: 64-year-old male with previous surgical thrombectomy and iliac stenting for acute limb ischemia in 2022. He was taken off systemic anticoagulation several months ago. He presented to the emergency room today
with a several day history of left calf and foot cramping. Cross-sectional imaging demonstrated thrombosed iliac stents with reconstitution of the common femoral artery. He was taken to the operating room for endovascular intervention and possible
thrombolysis initiation.
Procedure in Detail: Leland Galeana was correctly identified and placed supine on the operating table. After adequate induction of anesthesia the bilateral groins were prepped and draped in the usual sterile fashion. A timeout was performed with the
nursing and anesthesia staff confirming the patient's identity as well as the nature and laterality of the procedure.
The right common femoral artery was identified under ultrasound guidance. The artery was patent. The superior and inferior aspects of the femoral head were identified with radiographic guidance and marked at the skin level. The proposed puncture
site was infiltrated with local anesthesia. Under ultrasound guidance we accessed the right common femoral artery with a micropuncture needle and upsized to a 5 Fr sheath over a Bentson wire. The wire and a ShepherFair value hook flush catheter were
advanced into the distal abdominal aorta and a diagnostic aorto-biiliac arteriogram was performed:
AORTO-ILIAC ARTERIOGRAM:
Aorta: Patent with no stenosis identified
Right common iliac artery: Patent with no stenosis identified
Right external iliac artery: Patent with no stenosis identified
Left common iliac artery: Patent stump at the origin but occluded thereafter. Stents occluded.
Left external iliac artery: Occluded stents.
Under roadmap guidance using a Glidewire and the ShepherFair value hook catheter we selected the left common iliac artery and then the external iliac artery. A Quickcross catheter was tracked up and over the aortic bifurcation and placed in the distal
common femoral artery. A diagnostic left lower extremity arteriogram was then performed through the Quickcross catheter which demonstrated the following:
LEFT LOWER EXTREMITY:
Common femoral artery: Distal common femoral artery patent with no filling defects or stenoses identified
Profunda femoral artery: Patent with no filling defects or stenosis identified
Superficial femoral artery: Patent
Popliteal artery: Patent. Focal smooth stenosis identified behind the knee.
Anterior tibial artery: High takeoff of the anterior tibial artery behind the knee. Patent with no filling defects or stenoses identified
Tibioperoneal trunk: Thrombus identified within the TP trunk
Peroneal artery: Occluded
Posterior tibial artery: Occluded proximally but filled retrograde
ENDOVASCULAR INTERVENTION: Systemic heparin was administered. I selected the superficial femoral artery with the Quickcross and a Storq wire. Exchanged out for a 6 Fr 45 cm sheath over a Storq wire. Brought the radiopaque tip of the sheath up and
over the aortic bifurcation and into the proximal stump of patent left common iliac artery. I then brought into position a 5 Finnish 30 cm [employer] infusion catheter. The proximal and distal radiopaque markers were positioned appropriately.
The catheter extended across the entirety of the occluded left iliac system and into the proximal superficial femoral artery. I ensured that the proximal marker on the lytic catheter was at the aortic bifurcation, proximal to the point of the left
iliac occlusion. I also pulled the 6 Finnish sheath back to fully expose the lytic catheter. The wire was removed. 10 mg of tPA was injected through the lysis catheter as a pulsed bolus. After 15 minutes of dwell time I then performed an
arteriogram through the lysis catheter which showed slight improvement in the occluded segment and catheter position was appropriate.
The lytic catheter was secured in place at the sheath exit site using Steri-Strips. The lytic catheter was connected to the tPA infusion pump at 1 mg an hour. Heparin drip was connected to the sideport of the sheath and run at 500 units an hour.
The sheath was secured in place at the skin with adhesive dressings.
The patient tolerated the procedure well and was taken to the recovery area in stable condition.
Attestation: I was present and responsible for the entire procedure.
Signed:
Mansoor Wilkerson III, MD
[facility]
[phone] (wpvj)
--- NOTE | 2024-09-27 18:41 | W.PN.UPDATE ---
Update Note
Progress Note Update
This note serves as an addendum to the H&P by Terri Perla on September 27, 2024.
History of Present Illness
64-year-old male with past medial history significant for PAD, hyperlipidemia, CAD, hypertension, type 2 diabetes and history of thromboembolism of lower left extremity who presented to the [facility] Emergency Department for evaluation
following 3 to 4 days of lower left foot and leg pain. Patient stated that 4 days ago, he spent the day doing yard work including chopping wood. When he woke up the day after, he noticed pain in calf and foot when ambulating, he attributed to
previous days strenuous work in yard. Initially, his pain improved, but this morning patient was still having discomfort and was unable to palpate pulse in his left leg. Patient recalls in January 2023 with acute limb ischemia with a background of
chronic peripheral arterial occlusive disease hospitalization and intervention being told if this ever happens again go directly to ED for treatment. Other than his left lower extremity pain, patient denied any other symptoms on review of systems.
Physical Exam
Vital Signs noted.
General: Not in acute distress
HEENT: Normocephalic
Respiratory: CTAB
Cardiac: S1/S2, Regular Rhythm and Other (absent pulses in left lower extremity )
GI: Soft, Non Tender, Non Distended and Normal Bowel Sounds
Musculoskeletal: No Cyanosis and No Edema
Skin: Warm
Neuro: Awake, Alert, AO x 3 and Nonfocal/grossly intact
Psych: Calm and Intact Judgment/Insight
Assessment/Plan
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
#PAD
Abd CT (as per radiologist's report): There is occlusion of the left common iliac artery at its origin, involving the left common iliac artery stent. This occlusion extends throughout the left external iliac artery.
Opacification of the left common femoral artery due to collateral flow.
See above narrative for additional findings.
- Admit to telemetry
- NPO for OR today by vascular surgery
- Heparin gtt (DVT/PE protocol)
- Consult Vascular Surgery
#CAD
#hyperlipidemia
- continue aspirin and rosuvastatin
#hypertension
- continue lisinopril and metoprolol
#type 2 diabetes
- continue insulin aspart and insulin glargine
- Accuchecks AC & HS
- SSI
Code Status: Full code
DVT Prophylaxis: Heparin gtt
Acute Limb Ischemia needing Heparin Drip is a high risk encounter.
[2024-09-27 18:54] LABS: Hematocrit 38.1 % (39.0-52.0); Hemoglobin 12.9 g/dL (13.0-18.0); Platelet Count 213 10^3/uL (130-400)
--- NOTE | 2024-09-27 19:00 | PTCARENOTE ---
Patient received s/p OP accompanied by FRANCIS Jackson and virgen. Patient admitted to ICU bed 3368 and placed on CM. VSS. Right groin sheath site assessment WNL, site soft--Heparin, Alteplase and IVF infusing per order. Hand off validation. See assessment
charted. LLE foot cool, pulses via doppler. RLE foot warm, pulses weak but palpable. Patient is awake, A & O x 4. Respirations non labored. c/o mild left foot pain, neuropathy type pain. Declines offer of pain medication. CXR and EKG done per ICU
protocol. Wilkerson cathter in place, patent draining blood tinged yellow urine. Tolerating po ice chips. SR with 1st degree AVB on CM.
[2024-09-27 19:07] LABS: INR 1.09; PT 14.4 Sec (11.4-14.6)
[2024-09-27 19:08] LABS: Fibrinogen 507 MG/DL (199-459)
[2024-09-27] MEDS: CATHFLO/ACTIVASE 16 ML INF CATH ×2 (19:17→20:57)
[2024-09-27] MEDS: CATHFLO/ACTIVASE 16 MG INF CATH ×2 (19:17→20:57)
[2024-09-27] MEDS: HEPARIN 25000 UNITS/250 ML ART SHEATH (19:19)
[2024-09-27] MEDS: NSS 1000 INF CATH (19:21)
[2024-09-27 19:25] LABS: APTT > 200 Sec (23.4-35.0)
[2024-09-27] MEDS: NSS 1000 IV (19:29)
[2024-09-27] MEDS: NSS INF CATH (19:29)
[2024-09-27] MEDS: NOVOLOG FLEXPEN SC (20:54)
[2024-09-27] MEDS: ANCEF 5 IV (20:58)
[2024-09-27] MEDS: CRESTOR 20 MG PO (20:59)
[2024-09-27] MEDS: LANTUS 0.08 UNITS SC (21:01)
[2024-09-27 21:13] LABS: Glucose - Point of Care 141 mg/dl (70-99)
--- NOTE | 2024-09-27 22:30 | PTCARENOTE ---
IV pump alarming distal occlusion to IV line to his sheath in the right groin. IV with heparin is infusing without difficulty. I changed out the IV pump with no improvement. Dr. Wilkerson and Dr. Felton notified. Orders received to flush right groin
sheath/catheter with NS. Ana CAMERON at bedside. Unable to flush sheath. Plan for patient to return to the OR. Patient made NPO.
--- NOTE | 2024-09-27 23:35 | PTCARENOTE ---
Report/update provided to Cheryle vascular FORGE [facility]. Questions answered. Patient to the OR via bed at 1150.
--- NOTE | 2024-09-27 23:51 | W.PN.UPDATE ---
Update Note
Progress Note Update
Alerted by ICU staff that the lytic catheter was no longer working or flushing. No obvious kinking or compressive issue. Patient states his left leg pain is improved. I discussed he will need to be taken back to have a repeat arteriogram with likely
catheter exchange. He understands and consents to proceed.
[2024-09-27 23:52] LABS: Hematocrit 38.3 % (39.0-52.0); Hemoglobin 13.3 g/dL (13.0-18.0); Platelet Count 199 10^3/uL (130-400)
[2024-09-28] VITALS (33 sets, daily range): BP systolic 116–137; BP diastolic 62–97; PULSE 93; O2SAT 96–97; BMI 22.8
[2024-09-28 00:10] LABS: INR 1.04; PT 13.9 Sec (11.4-14.6)
[2024-09-28 00:11] LABS: APTT 37.7 Sec (23.4-35.0); Fibrinogen 533 MG/DL (199-459)
--- NOTE | 2024-09-28 00:42 | W.IMMPOSTOP ---
Surgical Immed Post Op Note
-
Primary Surgeon:
Karina Felton MD
Assisting Surgeon:
Pre-op Diagnosis: Acute Limb Ischemia
Post-op Diagnosis:
Procedure Performed:
LLSafia Fuller, 9x59 VBX in L MANISH, and 8x40 Zilver in L EIA
Anesthesia Type:
local and sedation
Specimen / Cultures:
Estimated Blood Loss:
5
Complications:
none
Operative Findings: thrombus mostly resolved
--- NOTE | 2024-09-28 00:58 | PTCARENOTE ---
Patient returned from the OR via bed accompanied by RN and anesthesiologist. Right groin sheath has been removed. Otherwise, essentially no change in patient assessment. LE neurovascular checks continue every 1 hour. VSS. Remains in SR with 1st
degree AVB on CM.
[2024-09-28] MEDS: HEPARIN 25000 UNITS/250 ML IV ×2 (02:01→19:47)
[2024-09-28] MEDS: CATHFLO/ACTIVASE INF CATH ×2 (02:20)
[2024-09-28 02:40] LABS: Hematocrit 37.4 % (39.0-52.0); Hemoglobin 12.8 g/dL (13.0-18.0); Mean Corp Hgb Conc. 34.2 g/dL (33.0-37.0); Mean Corpuscular Hgb 31.7 pg (27.0-31.0); Mean Corpuscular Volume 92.6 fL (80.0-94.0); Platelet Count 199 10^3/uL (130-400); Red Blood Cell Count 4.04 10^6/uL (4.70-6.10); Red Cell Dist. Width 14.5 % (11.5-14.5); White Blood Cell Count 15.5 10^3/uL (4.8-10.8)
[2024-09-28 02:51] LABS: APTT 50.3 Sec (23.4-35.0)
--- NOTE | 2024-09-28 03:47 | W.PN.UPDATE ---
Update Note
Progress Note Update
09/27/24
2250 RN noted TPA pump was beeping, unable to flush lytic catheter or pull back. I attempted and was unsuccessful at flushing or getting blood return on lytic catheter. Dr. Felton, vascular surgeon updated that lytic catheter was occluded and
unable to flush or get blood return. Patient without pain or discomfort, no visible hematoma. Catheter from the outside not visibly kinked, patient has been cooperative and kept leg straight. Video chatted with Dr. Felton via tiger text
communication to visual show lytic catheter. Dr. Felton called OR team to address lytic catheter that was obstructed. Dr. Felton discussed with patient need for repeat arteriogram with likely catheter exchange.
0040 Patient received back from OR, no sheath was removed and no lytic catheter, thrombus was mostly resolved and was stented. Dr. Felton ordered heparin gtt per protocol, TPA no longer needed, patient may have breakfast and PO fluids.
[2024-09-28] MEDS: ANCEF 5 IV (03:57)
[2024-09-28] MEDS: HEPARIN 5700 UNITS IV ×2 (03:58→16:50)
--- NOTE | 2024-09-28 04:00 | PTCARENOTE ---
Addendum entered by Joy Hansen RN 09/28/24 04:37:
Urine via dia catheter is clearing. However, UO has slowed. Ana CAMERON notified. Orders received for 500cc NS bolus.
Original Note:
Assessment unchanged except BLE pedal and post tib pulses weak but palpable. VSS. No c/o pain. Right groin site remains soft, dressing CDI.
[2024-09-28] MEDS: NSS 500 IV (04:40)
[2024-09-28 06:23] LABS: INR 1.06; PT 14.1 Sec (11.4-14.6)
[2024-09-28 06:27] LABS: Hematocrit 38.4 % (39.0-52.0); Hemoglobin 12.9 g/dL (13.0-18.0); Mean Corp Hgb Conc. 33.6 g/dL (33.0-37.0); Mean Corpuscular Hgb 31.9 pg (27.0-31.0); Mean Platelet Volume 9.4 fL (7.4-10.4); Platelet Count 200 10^3/uL (130-400); Red Blood Cell Count 4.04 10^6/uL (4.70-6.10); Red Cell Dist. Width 14.4 % (11.5-14.5); White Blood Cell Count 14.7 10^3/uL (4.8-10.8)
[2024-09-28 07:05] LABS: ALT (SGPT) 25 U/L (0-50); AST (SGOT) 31 U/L (17-59); Albumin 3.1 g/dl (3.5-5.0); Alkaline Phosphatase 50 U/L (38-126); Blood Urea Nitrogen 8 mg/dl (9-20); Calcium 8.6 mg/dl (8.4-10.2); Carbon Dioxide 24 mmol/L (22-30); Chloride 104 mmol/L (98-107); Direct Bilirubin 0.3 mg/dl (0.0-0.4); Estimated Creatinine Clearance > 125 ml/min; Glucose 148 mg/dl (70-99); Phosphorus 2.8 mg/dl (2.5-4.5); Potassium 3.9 mmol/L (3.5-5.1); Sodium 139 mmol/L (135-145); Total Bilirubin 0.6 mg/dl (0.2-1.3); Total Protein 5.8 g/dl (6.3-8.2); eGFR > 60.00
--- NOTE | 2024-09-28 07:15 | PTCARENOTE ---
Report given to oncheather camacho, FRANCIS Tenorio. Questions answered.
--- NOTE | 2024-09-28 07:17 | PTCARENOTE ---
Report given verbally to Jona singh RN. Questions answered.
--- NOTE | 2024-09-28 08:00 | W.PN.VS ---
Addendum entered and electronically signed by ISAC Nunez 09/28/24 11:25:
Keep Wilkerson catheter this morning for blood-tinged urine. No clots noted. Will reassess. If urine clears up may DC Wilkerson catheter this afternoon
Original Note:
Today's Communication / Plan
-
Seen and assessed with Dr. Jones
Assessment/Plan
-
POD 0.5 lysis, left MANISH VBX, left IEA Zilver stent
Plan:
-DC Wilkerson
-Out of bed/ambulate
-Increase diet
-P.o. meds
-Cardiology consult
-Echo
Subjective Data
-
Date of Service: September 28, 2024
Patient seen at bedside today with Dr. Jones. Patient offers no complaints this time. Patient doing great this morning. Bilateral feet warm, pink, palpable pulses bilaterally.
Objective Data
-
Vital Signs
Temp Pulse Resp BP Pulse Ox
98.7 F 91 18 130/69 96
09/28/24 07:48 09/28/24 06:15 09/28/24 06:15 09/28/24 06:00 09/28/24 06:15
Intake and Output
09/27/24 09/28/24 09/29/24
06:59 06:59 06:59
Intake Total 1628 / 1642
Output Total 1265 / 1345 80 / 80
Balance 363 / 297 -66 / -66
Intake:
Oral fluids 180 / 180
IV fluids (Total) 943 / 957
Alteplase
HEPARIN 80697 UNITS/250 ML 25, 93 / 107
000 units In 250 ml @ 500 UNITS
/HR 5 mls/hr ART SHEATH .Q24H
[facility] Rx#:[id number]
Normosol 250 / 250
Nss 1,000 ml @ 46 mls/hr INF 184 / 184
CATH .[id number] [facility] Rx#:[id number]
Nss 1,000 ml @ 80 mls/hr IV . 400 / 400
[id number] [facility] Rx#:[id number]
IV piggybacks 505 / 505
Output:
Urine, Wilkerson 1265 / 1345 80 / 80
Lab Results
09/28/24 23:27
09/28/24 06:01
Calcium 8.6 mg/dl (8.4-10.2) 09/28/24 06:01
Phosphorus 2.8 mg/dl (2.5-4.5) 09/28/24 06:01
Magnesium 2.0 mg/dl (1.6-2.3) 09/28/24 06:01
Total Bilirubin 0.6 mg/dl (0.2-1.3) 09/28/24 06:01
Direct Bilirubin 0.3 mg/dl (0.0-0.4) 09/28/24 06:01
AST 31 U/L (17-59) 09/28/24 06:01
ALT 25 U/L (0-50) 09/28/24 06:01
Alkaline Phosphatase 50 U/L (38-126) 09/28/24 06:01
Total Protein 5.8 g/dl (6.3-8.2) L 09/28/24 06:01
Albumin 3.1 g/dl (3.5-5.0) L 09/28/24 06:01
Physical Exam
-
AAOx3
No tachypnea on room air
No tachycardia
Abdomen soft
Groin site clean, dry, intact, soft, flat
Bilateral feet warm, pink, bilateral DP and PT pulses palpable
[2024-09-28] MEDS: TYLENOL 650 MG PO (08:18)
[2024-09-28] MEDS: VITAMIN D3 (cholecalciferol) 25 MCG PO (08:19)
[2024-09-28] MEDS: VITAMIN B-12 1000 MCG PO (08:19)
[2024-09-28] MEDS: ZESTRIL 5 MG PO (08:19)
[2024-09-28] MEDS: TOPROL XL 50 MG PO (08:20)
[2024-09-28] MEDS: ASPIR LOW (ENTERIC COATED) 81 MG PO (08:20)
[2024-09-28 08:22] LABS: Glucose - Point of Care 159 mg/dl (70-99)
--- NOTE | 2024-09-28 08:28 | CON.INTV ---
Consultation
Consultation Request
Date/Time Consultation Requested: 09/27/2024 - 1726
Date/Time Consultation Performed: 09/28/2024826
Requesting Provider: ISAC Nunez
Performing Provider: Jordan Mendes MD
Reason for Consultation: post-op for LLE ischemia s/p lytic infusion
Medical History
-
Chief Complaint: Left foot pain + left calf cramping
History of Present Illness:
64-year-old male active tobacco smoker with a past medical history of PAD, hyperlipidemia, history of LLE ischemia due to DVT s/p thromboembolectomy, CAD s/p stent to LAD, hypertension, DM type II and history of LV apical thrombus who presents with
left foot pain + left calf cramping since this past Thursday. Denies any recent injury but did do yard work the day prior to symptoms starting on Thursday. He endorses leg weakness while walking. His symptoms reminded him of his prior LLE arterial
occlusion back in January 2023. Initially in the ER, he was afebrile to 98.4 �F, tachycardic to 114, breathing at 20 breaths/minute, BP 157/105 and saturating 99% on room air. Initially labs showed leukocytosis of 13.2 and INR 0.96. Foot x-ray
showed no acute fracture or dislocation, LLE US duplex showed no evidence of DVT. CTA abdominal aorta with runoff showed occlusion of the left common iliac artery at its origin involving the left common iliac artery stent which extends through the
left external iliac artery. Heparin drip was started and vascular surgery was consulted. Patient was brought to the OR and a lytic catheter was placed with tPA infusion started in addition to heparin drip. Shortly thereafter the lytic catheter
was no longer functioning and he had to go back to the OR for placement of a stent across the left external iliac artery with balloon angioplasty with a 7 x 40 balloon, and another stent was placed into the left common iliac artery. He was
transferred to the ICU postoperatively for further care, and mainframe programmer analyst services consulted for additional management/recommendations.
When I saw the patient this morning he was resting in bed in no acute distress. He has left-sided foot pain but it is mild. Currently heart rate is 95, BP 130/80 and he is saturating 96% on room air. He denies chest pain, SOB, METCALF, abdominal pain,
nausea, fevers or chills.
Of note, patient follows with us in the [facility] office with last visit on 06/03/[address] Magana. At that time he was seen after hospitalization in January 2023 for an ischemic left lower extremity due to thromboembolism of his left common iliac
artery through the left external + left internal iliac arteries s/p thromboembolectomy. He had continued to smoke at that time but was smoking 0.5 PPD at that office visit. He denied any pulmonary complaints. At that time and LDCT chest was
reviewed and ordered but unclear if this was done as it is not in the [facility] system here at [facility]. His last PFTs were on 06/03/2023 showing no obstruction or restriction. There was a mild gas exchange capacity defect which was normal when
accounting for alveolar volume involved in gas exchange (DLco: 67%, DLco/VA: 85%).
PMHx: DM type II, hypertension, hyperlipidemia, history of LV apical thrombus (01/2023), cardiomyopathy, left lower extremity arterial thrombus s/p thromboembolectomy and stenting (02/17/2023), CAD s/p stent
PSHx: Knee surgery, left iliac thromboembolectomy, coronary stent into the descending artery
Past Medical History
Past Medical History: Other (Above as per HPI)
Past Surgical History: Other (Above as per HPI)
Social History
Tobacco: Smoker (4-5 cigarettes weekly, previously smoked 1 PPD x 40 years)
Alcohol: None
Drug: None
Family History
Family History: CAD (Father + mother) and Diabetes (Mother)
Allergies / Home Medications
Allergies
Allergy/AdvReac Type Severity Reaction Status Date / Time
No Known Allergies Allergy Verified 09/27/24 09:45
Home Medications
�Medication �Instructions �Recorded �Confirmed �Last Taken �Type
lisinopril 5 mg tablet 5 mg PO DAILY heart 02/19/23 09/27/24 09/27/24 Rx
disease/condition #30 tabs
insulin aspart U-100 100 unit/mL 7 unit SC AC Diabetes 06/02/23 09/27/24 09/27/24 History
(3 mL) subcutaneous pen (Novolog
FlexPen U-100 Insulin aspart)
insulin glargine 100 unit/mL (3 8 unit SC HS Diabetes 06/02/23 09/27/24 09/26/24 History
mL) subcutaneous pen (Basaglar
KwikPen U-100 Insulin)
aspirin 81 mg tablet,delayed 81 mg PO DAILY 09/27/24 09/27/24 09/27/24 History
release
cholecalciferol (vitamin D3) 25 25 mcg PO DAILY 09/27/24 09/27/24 09/27/24 History
mcg (1,000 unit) tablet (Vitamin
D3)
cyanocobalamin (vitamin B-12) 1,000 mcg PO DAILY 09/27/24 09/27/24 Unknown History
1,000 mcg tablet
metoprolol succinate 50 mg 50 mg PO DAILY 09/27/24 09/27/24 09/27/24 History
tablet,extended release 24 hr
rosuvastatin 20 mg tablet 20 mg PO HS 09/27/24 09/27/24 09/26/24 History
tirzepatide 5 mg/0.5 mL 5 mg SC SA 09/27/24 09/27/24 09/24/24 History
subcutaneous pen injector
(Mounjaro)
Review of Systems
-
History Source: Patient
All other systems: Negative unless noted
Vitals / Labs / Diagnostic Testing
Vital Signs
Temp Pulse Resp BP Pulse Ox
98.7 F 91 18 130/69 96
09/28/24 07:48 09/28/24 06:15 09/28/24 06:15 09/28/24 06:00 09/28/24 07:56
Lab Data
09/28/24 23:27
09/28/24 06:01
Laboratory Results
09/27/24 09/27/24 09/27/24
12:08 18:48 20:27
PT 13.1 14.4
INR 0.96 1.09
APTT 26.7 > 200 H* Cancelled
09/27/24 09/28/24 09/28/24
23:43 02:05 05:27
PT 13.9
INR 1.04
APTT 37.7 H 50.3 H Cancelled
09/28/24 09/28/24 09/28/24
06:01 08:30 11:27
PT 14.1
INR 1.06
APTT 125.7 H Cancelled
09/28/24 09/28/24
17:27 23:27
PT
INR
APTT Cancelled Cancelled
Diagnostic Testing:
Physical Exam
-
HEENT: Normocephalic, Anicteric and Moist Mucous Membranes
Cardiovascular: S1/S2 and Peripheral Edema (negative)
Respiratory: Clear, Wheeze (negative), Rales (negative), Rhonchi (negative) and Non-Labored Respirations
GI: Soft, Non Distended, Non Tender and Normal Bowel Sounds
Neurology: AO x 3 and Tremors (negative)
Skin: Warm and Dry
General: Respiratory Distress (negative), Comfortable, Fever (negative) and Chills (negative)
Assessment
-
Assessment: 64-year-old male active tobacco smoker with a past medical history of PAD, hyperlipidemia, history of LLE ischemia due to DVT s/p thromboembolectomy, CAD s/p stent to LAD, hypertension, DM type II and history of LV apical thrombus who
presents with left foot pain + left calf cramping since this past Thursday. Denies any recent injury but did do yard work the day prior to symptoms starting on Thursday. He endorses leg weakness while walking. His symptoms reminded him of his prior
LLE arterial occlusion back in January 2023. Initially in the ER, he was afebrile to 98.4 �F, tachycardic to 114, breathing at 20 breaths/minute, BP 157/105 and saturating 99% on room air. Initially labs showed leukocytosis of 13.2 and INR 0.96.
Foot x-ray showed no acute fracture or dislocation, LLE US duplex showed no evidence of DVT. CTA abdominal aorta with runoff showed occlusion of the left common iliac artery at its origin involving the left common iliac artery stent which extends
through the left external iliac artery. Heparin drip was started and vascular surgery was consulted. Patient was brought to the OR and a lytic catheter was placed with tPA infusion started in addition to heparin drip. Shortly thereafter the lytic
catheter was no longer functioning and he had to go back to the OR for placement of a stent across the left external iliac artery with balloon angioplasty with a 7 x 40 balloon, and another stent was placed into the left common iliac artery. He was
transferred to the ICU postoperatively for further care, and mainframe programmer analyst services consulted for additional management/recommendations.
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
Impression:
#Acute left lower extremity limb ischemia s/p lytic catheter infusion (OR: 09/27/2024) complicated by lytic catheter malfunction with subsequent removal and stent placement x 2+ balloon angioplasty (POD#1)
#History of left lower extremity arterial occlusion s/p thromboembolectomy + stent (January 2023)
#Leukocytosis likely reactive due to above
#Acute anemia
#DM type II (HbA1c: 7.1 on 09/28/2024)
#LV apical thrombus seen on echo from 02/18/2023 - thrombus no longer seen on echo that was repeated today (09/28/2024)
#History of hypertension
#History of hyperlipidemia
#CAD s/p stent to LAD
#Tobacco use disorder (currently smoking 4-5 cigarettes weekly, previously smoked 1 PPD x 40 years)
Plan:
Postoperative surgical intensive care unit monitoring
Supplemental oxygen as needed to maintain SpO2 >90-94%
prn nebulized bronchodilators - not currently bronchospastic
Incentive spirometry encouraged 10x per hour for at least 4 hrs a day
Aspiration precautions
Pain control
Neuro and vascular checks per protocol
Maintain MAP>65
Replete electrolytes with K>4, Mg>2
Maintain euglycemia with goal BG 140-180
Vascular surgery following-correspondence and operative notes reviewed
Transfuse blood products as needed to keep Hb>7g/dL, and plt>50k (given post-operative status)
DVT prophylaxis
Early nutrition
Early mobilization
I will arrange for outpatient [facility] office follow-up as last visit was on 06/03/[address] Magana - he qualifies for lung cancer screening via LDCT chest which should be discussed as an outpatient.
Patient is stable for downgrade out of ICU to telemetry - this was confirmed by vascular surgery. No additional recommendations at this time. Concrete Grinder Operator/Pulmonary service will now sign off. Thank you for allowing us to be involved in the care of
this patient. Please re-consult if there are any additional questions/concerns, or if patient's respiratory status deteriorates.
Data:
CTA abdominal aorta with runoff 09/27/2024:
There is occlusion of the left common iliac artery at its origin, involving the left common iliac artery stent. This occlusion extends throughout the left external iliac artery.
Opacification of the left common femoral artery due to collateral flow.
Total time spent today was 57 minutes for this encounter. Time includes reviewing laboratory test/imaging results, reviewing pertinent medical records, obtaining and reviewing medical history, performing an appropriate exam, ordering medications,
tests and procedures. Time also includes documentation of this encounter, coordinating patient care and communicating with other healthcare professionals. Total time does not include separately billed tests performed on this date of service.
[2024-09-28] MEDS: NOVOLOG FLEXPEN 7 UNITS SC ×3 (08:36→17:54)
[2024-09-28] MEDS: NOVOLOG FLEXPEN-LOW RESISTANCE 1 UNITS SC (08:37)
[2024-09-28 08:54] LABS: APTT 125.7 Sec (23.4-35.0)
[2024-09-28 09:04] LABS: Glycohemoglobin (HgbA1c) 7.1 % (4.0-5.6)
--- NOTE | 2024-09-28 09:11 | CON.CAR ---
Addendum entered and electronically signed by Vu Urban MD 09/28/24 10:05:
I saw and examined the patient.
The MEDICAL OFFICE PROFESSIONAL INSTRUCTOR or PA's note was reviewed and I agree with the note.
Comment: General: Well developed, well nourished in NAD.
Neck: Supple, no JVD, HJR, carotids +2 B/L, no bruits bilaterally.
Heart: Non displaced PMI, RRR, no murmurs, No S3, S4, no rubs.
Lungs: Clear to auscultation bilaterally, no wheeze, rhonchi, rubs bilaterally,
normal expiratory phase.
Abdomen: Normal bowel sounds, soft, non-tender, non-distended.
Extremities: No clubbing, cyanosis or edema bilaterally.
Neuro: Grossly nonfocal, awake, alert and oriented x3.
Leland has a history of left lower extremity limb ischemia status post thrombectomy to left iliac, left popliteal and tibial arteries with angioplasty and stenting of left common and external iliac arteries in 2022. He has noted to have LV thrombus
with an EF of 45 to 50% in the past and was on Eliquis at one point. Repeat echo in April 2023 revealed resolution of LV thrombus. He has history of LAD stent x 2. He has been on aspirin alone since May 2024. He presented with worsening left
lower extremity pain and noted to have left iliac artery stent occlusion and left external iliac stent occlusion. Intermittent placement of lytic catheter. Cardiology is consulted for possible cause of thrombus.
He remains on IV heparin. Will check echo with contrast to exclude LV thrombus. May need to consider lifelong anticoagulation. May need to consider hypercoagulable workup thru hematology
Original Note:
Consultation
Consultation Request
Date/Time Consultation Performed: 09/28/24
Requesting Provider: Dr. Wilkerson
Performing Provider: Anastasia Colin PA-C for Dr. Urban
Reason for Consultation: LLE limb ischemia
Medical History
-
Chief Complaint: LLE pain
History of Present Illness:
He is a 64-year-old male with past medical history of left lower extremity limb ischemia status post thromboembolectomy to left iliac, left popliteal and tibial arteries along with angioplasty and stenting of left common and external iliac arteries
01/2023. Underwent echocardiogram with EF 45 to 50% and LV thrombus at that time. Was started on Eliquis. He then had repeat echocardiogram 04/2023 with resolution of LV thrombus. He underwent cardiac catheterization resulting in LAD PCI x 2, with
residual mod RCA disease. He was then transition to aspirin and Plavix. His Plavix was stopped as of 05/2024 and continued on aspirin alone. He reports worsening left lower extremity pain in calf and foot over the 3 days leading up to admission.
Prior to that he was doing normal activities without any difficulty. He denies recent chest pain, shortness of breath, palpitations or abnormal heartbeats, lightheadedness or dizziness. He underwent arteriogram yesterday which showed left common
iliac artery stent occlusion and left external iliac artery stent occlusion. He underwent placement of lytic catheter. Overnight it was felt that lytic catheter was not working appropriately. He underwent repeat arteriogram resulting in L MANISH and
L EIA stents. Cardiology consulted due to recurrent LLE limb ischemia, concern from cardiac source.
PMH:
PAD with left lower extremity limb ischemia status post thromboembolectomy to left iliac, left popliteal and tibial arteries along with angioplasty/stenting of left common and external iliac arteries 01/2023
LV thrombus by echo 01/2023 with resolution by echo 04/2023
CAD s/p LAD PCI x2 05/2023
Residual RCA disease, medically managed
HTN
HLD
DM2
Active smoker
History of ETOH use disorder
Past Medical History
Past Medical History: Other (in HPI)
Past Surgical History: Orthopedic and Other (LLE thrombectomy 02/17/23)
Social History
Tobacco: Smoker (0.5 ppd)
Alcohol: Occasional
Drug: None
Living: Alone
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
Family History
Family History: CAD (father [place] in his 70s) and Other (no FH clotting disorder)
Allergies / Home Medications
Allergy/AdvReac Type Severity Reaction Status Date / Time
No Known Allergies Allergy Verified 09/27/24 09:45
�Medication �Instructions �Recorded �Confirmed �Type
lisinopril 5 mg tablet 5 mg PO DAILY heart 02/19/23 09/27/24 Rx
disease/condition #30 tabs
insulin aspart U-100 100 unit/mL 7 unit SC AC Diabetes 06/02/23 09/27/24 History
(3 mL) subcutaneous pen (Novolog
FlexPen U-100 Insulin aspart)
insulin glargine 100 unit/mL (3 8 unit SC HS Diabetes 06/02/23 09/27/24 History
mL) subcutaneous pen (Basaglar
KwikPen U-100 Insulin)
aspirin 81 mg tablet,delayed 81 mg PO DAILY 09/27/24 09/27/24 History
release
cholecalciferol (vitamin D3) 25 25 mcg PO DAILY 09/27/24 09/27/24 History
mcg (1,000 unit) tablet (Vitamin
D3)
cyanocobalamin (vitamin B-12) 1,000 mcg PO DAILY 09/27/24 09/27/24 History
1,000 mcg tablet
metoprolol succinate 50 mg 50 mg PO DAILY 09/27/24 09/27/24 History
tablet,extended release 24 hr
rosuvastatin 20 mg tablet 20 mg PO HS 09/27/24 09/27/24 History
tirzepatide 5 mg/0.5 mL 5 mg SC SA 09/27/24 09/27/24 History
subcutaneous pen injector
(Mounjaro)
Review of Systems
-
History Source: Patient
All other systems: Negative unless noted
Physical Exam
Vital Signs
Temp Pulse Resp BP Pulse Ox
98.7 F 91 18 130/69 96
09/28/24 07:48 09/28/24 06:15 09/28/24 06:15 09/28/24 06:00 09/28/24 07:56
Lab Results
09/28/24 23:27
09/28/24 06:01
Physical Exam
General: No Apparent Distress and Comfortable
HEENT: Normocephalic, Anicteric and Moist Mucous Membranes
Respiratory: Clear and Non Labored Respirations
Cardiac: S1/S2 and Regular Rhythm
GI: Soft, Non Tender, Non Distended and Normal Bowel Sounds
Musculoskeletal: No Clubbing, No Cyanosis and No Edema
Skin: Warm, Dry and Other (LLE warm, diaphoretic, mild erythema on dorsal aspect of foot)
Neuro: AO x 3
Impression / Plan
-
Primary Volunteer Services Director: Dr. Peralta
Assessment:
-Presentation with LLE pain
-LLE limb ischemia with left common iliac artery stent occlusion and left external iliac artery stent occlusion by angiogram 09/27/24 s/p lytic catheter placement with subsequent malfunction resulting in repeat angiogram and L MANISH and L EIA stents
09/28/24
-PAD with left lower extremity limb ischemia status post thromboembolectomy to left iliac, left popliteal and tibial arteries along with angioplasty/stenting of left common and external iliac arteries 01/2023
-LV thrombus by echo 01/2023 with resolution by echo 04/2023
-CAD s/p LAD PCI x2 05/2023
-Residual RCA disease, medically managed
-History of cardiomyopathy, EF 45 to 50%, improved by echo 08/2023
-HTN
-HLD
-DM2
-Active smoker
-History of ETOH use disorder
ECHO 02/18/23: EF 45 to 50%, moderate hypokinesis of apex and apical septum, apical inferior wall, apical thrombus measuring 1 x 0.72 x 0.65 cm, stage I diastolic dysfunction, no significant valvular disease
ECHO 05/11/2023: EF 45 to 50%, moderate hypokinesis of apex, apical septum and apical inferior wall, no thrombus identified in apex using Definity, no significant valvular disease
ECHO 09/10/2023: EF 55 to 60%, mild apical hypokinesis, MAC, trace MR, trace AR, trace TR, PAP 20 to 25 mmHg
Plan:
-Patient presented with left lower extremity pain. Found to have left common iliac artery stent occlusion and left external iliac artery stent occlusion by angiogram 09/27/2024. He underwent lytic catheter placement with subsequent malfunction
resulting in repeat angiogram with left common iliac artery and external iliac artery stents overnight.
-Reports pain in his left lower extremity is much improved
-Will repeat echocardiogram to assess for recurrence of LV thrombus.
-He denies recent symptoms of angina/ischemia with no chest pain, shortness of breath. Denies symptoms of arrhythmia including palpitations or lightheadedness.
-In sinus rhythm on review of telemetry. EKG NSR
-Currently on IV heparin. At this point would plan for likely lifelong anticoagulation. Continue aspirin with history of coronary and peripheral stents.
-May need consideration for hypercoagulable workup. He denies history of known clotting or blood disorders in himself or family members.
-d/w nursing
Data Reviewed
-
EKG: Tracing Personally Visualized and interpreted
Medical Tests (Nuc Med, Echo etc): Report Reviewed by me
Labs: Labs Reviewed by me
Old Records: Reviewed
[2024-09-28] MEDS: NSS 1000 IV ×2 (11:11→21:42)
--- NOTE | 2024-09-28 11:46 | CM ---
CM following re: discharge planning.
Reviewed pt's chart, met with pt.
Pt is a 64 year old male, admitted with primary dx of POD 0.5 lysis, left MANISH VBX, left IEA [place] stent.
Pt reports he lives alone in a 2[address], has 3 supportive stepchildren, supportive brothers. 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
PCP: Anju Gomez
Pharmacy: [facility].
D/C plan: home with anticipated no needs. Brother to transport at discharge.
CM will follow with discharge plan updates as hospitalization progresses.
[2024-09-28] MEDS: NOVOLOG FLEXPEN-LOW RESISTANCE SC ×2 (12:59→17:54)
[2024-09-28 13:06] LABS: Glucose - Point of Care 146 mg/dl (70-99)
--- NOTE | 2024-09-28 13:21 | W.PN.ANS.POP ---
Anesthesia Post Operative
- Anesthesia Post Op Note
Vital Signs Stable-See Nursing Note: Yes
Airway Patent: Yes
Adequate Pain Control: Yes
Change in Mental Status: No
Current Postoperative Nausea & Vomiting: No
Anesthesia Complications: No
General Anesthetic Recall: No
Unplanned Admission: No
Post Op Hydration Adequate: Yes
--- NOTE | 2024-09-28 13:34 | PTCARENOTE ---
Pt received in bed @ 0700. AAOx3. Minimal pain left plantar surface. Pt expresses full feeling. Pedal pulses palpable. Neurovascular assessment as documented. PRN Tylenol provided. SaO2 96% on room air. (+) bowel sounds and (+) appetite. Ate 100% of
breakfast. Wilkerson catheter with brown/red output. Right groin site C/D/I. No hematoma observed. Heparin gtt infusing @ 1200 units/hr. Next PTT ordered @ 15:00.
[2024-09-28 16:38] LABS: APTT 47.3 Sec (23.4-35.0)
[2024-09-28 18:03] LABS: Glucose - Point of Care 130 mg/dl (70-99)
--- NOTE | 2024-09-28 18:54 | W.PN.HOSP.TC ---
Today's Communication/Plan
-
Continue Heparin Drip
May need lifelong anticoagulation
Assessment / Plan
Assessment / Plan
Physical Exam
General: Not in acute distress
HEENT: Normocephalic
Respiratory: CTAB
Cardiac: S1/S2, Regular Rhythm and Other (absent pulses in left lower extremity )
GI: Soft, Non Tender, Non Distended and Normal Bowel Sounds
Musculoskeletal: No Cyanosis and No Edema
Skin: Warm
Neuro: Awake, Alert, AO x 3 and Nonfocal/grossly intact
Psych: Calm and Intact Judgment/Insight
Assessment/Plan
#Acute limb ischemia left lower extremity status post lytic catheter infusion (OR: 09/27/2024) complicated by lytic catheter malfunction with subsequent removal and stent placement x 2+ balloon angioplasty (POD#1)
#History of left lower extremity arterial occlusion s/p thromboembolectomy + stent (January 2023)
#PAD
Abd CT (as per radiologist's report): There is occlusion of the left common iliac artery at its origin, involving the left common iliac artery stent. This occlusion extends throughout the left external iliac artery.
Opacification of the left common femoral artery due to collateral flow.
See above narrative for additional findings.
-Discontinue Wilkerson catheter
-Consult Vascular Surgery
-Continue anticoagulation with heparin given suspected thrombi causing patient's lower extremity ischemia/recurrent
-Monitor labs
-Continue Aspirin
#Leukocytosis likely reactive due to above
#Acute anemia
#LV apical thrombus seen on echo from 02/18/2023 - thrombus no longer seen on echo that was repeated today (09/28/2024)
#Tobacco use disorder (currently smoking 4-5 cigarettes weekly, previously smoked 1 PPD x 40 years)
-Follow-up with [facility] pul outpatient for lung cancer screening
#CAD s/p stent to LAD
#hyperlipidemia
- continue aspirin and rosuvastatin
#hypertension
- continue lisinopril and metoprolol
#type 2 diabetes
- continue insulin aspart and insulin glargine
- Accuchecks AC & HS
- SSI
Code Status: Full code
DVT Prophylaxis: Heparin gtt
Anticipated Discharge: > 48 hours
Subjective/Interval History
-
Date of Service: September 28, 2024
Patient was seen and examined. He was doing well after his surgery overnight, pain in his left foot and leg is better.
Objective Data
-
Labs:
Laboratory Results
09/28/24 09/28/24 09/28/24
06:01 08:30 11:27
PT Cancelled
INR Cancelled
APTT 125.7 H
Sodium 139
Potassium 3.9
Chloride 104
Carbon Dioxide 24
BUN 8 L
Creatinine 0.6 L
Glucose 148 H
Calcium 8.6
Total Bilirubin 0.6
AST 31
ALT 25
Alkaline Phosphatase 50
09/28/24 09/28/24 09/28/24
16:13 17:27 23:00
PT Cancelled
INR Cancelled
APTT 47.3 H Pending
Sodium
Potassium
Chloride
Carbon Dioxide
BUN
Creatinine
Glucose
Calcium
Total Bilirubin
AST
ALT
Alkaline Phosphatase
09/28/24
23:27
PT Cancelled
INR Cancelled
APTT
Sodium
Potassium
Chloride
Carbon Dioxide
BUN
Creatinine
Glucose
Calcium
Total Bilirubin
AST
ALT
Alkaline Phosphatase
Vital Signs:
Vital Signs
Temp Pulse Resp BP Pulse Ox
99.4 F 91 18 130/69 96
09/28/24 15:00 09/28/24 06:15 09/28/24 06:15 09/28/24 06:00 09/28/24 13:28
I&O
09/27/24 09/28/24 09/29/24
06:59 06:59 06:59
Intake Total 1628 / 1642 2539 / 2539
Output Total 1265 / 1345 875 / 875
Balance 363 / 297 1664 / 1664
--- NOTE | 2024-09-28 20:02 | PTCARENOTE ---
Cannot verify vitals prior to 1899, previous shift. Patient AAOx3, following commands, denying pain. NS, BP stable, normothermic, +1 generalized anasarca. Lung sounds diminished, 96% on room air. Abdomen soft, round, nontender, positive bowel
sounds. Wilkerson draining rehan urine. PIVs patent, WNL. Heparin gtt ongoing, NSS gtt ongoing. Right groin site CDI. Pedal and posterior tibial pulses present with doppler. Call tinoco within reach.
[2024-09-28] MEDS: CRESTOR 20 MG PO (21:41)
[2024-09-28] MEDS: LANTUS 0.08 UNITS SC (21:42)
[2024-09-28 21:54] LABS: Glucose - Point of Care 121 mg/dl (70-99)
[2024-09-29] VITALS: BP 130/67
[2024-09-29 00:20] LABS: APTT 116.8 Sec (23.4-35.0)
[2024-09-29 02:00] VITALS: BP 132/74
[2024-09-29 04:00] VITALS: BP 131/76
[2024-09-29 06:00] VITALS: BMI 23.2
[2024-09-29 06:40] LABS: Hematocrit 36.4 % (39.0-52.0); Hemoglobin 12.7 g/dL (13.0-18.0); Mean Corp Hgb Conc. 34.9 g/dL (33.0-37.0); Mean Corpuscular Hgb 32.2 pg (27.0-31.0); Mean Corpuscular Volume 92.4 fL (80.0-94.0); Mean Platelet Volume 9.2 fL (7.4-10.4); Platelet Count 201 10^3/uL (130-400); Red Blood Cell Count 3.94 10^6/uL (4.70-6.10); Red Cell Dist. Width 13.8 % (11.5-14.5); White Blood Cell Count 12.4 10^3/uL (4.8-10.8)
[2024-09-29 07:01] LABS: Blood Urea Nitrogen 8 mg/dl (9-20); Calcium 8.7 mg/dl (8.4-10.2); Carbon Dioxide 23 mmol/L (22-30); Chloride 104 mmol/L (98-107); Estimated Creatinine Clearance > 125 ml/min; Glucose 116 mg/dl (70-99); Potassium 3.9 mmol/L (3.5-5.1); Sodium 135 mmol/L (135-145); eGFR > 60.00
[2024-09-29 07:11] LABS: APTT 67.2 Sec (23.4-35.0)
[2024-09-29 08:00] VITALS: BP 140/78
[2024-09-29 08:01] LABS: Glucose - Point of Care 120 mg/dl (70-99)
[2024-09-29] MEDS: NOVOLOG FLEXPEN 7 UNITS SC ×2 (08:22→13:17)
[2024-09-29] MEDS: NOVOLOG FLEXPEN-LOW RESISTANCE SC (08:26)
[2024-09-29] MEDS: ASPIR LOW (ENTERIC COATED) 81 MG PO (08:28)
[2024-09-29] MEDS: ZESTRIL 5 MG PO (08:28)
[2024-09-29] MEDS: VITAMIN D3 (cholecalciferol) 25 MCG PO (08:28)
[2024-09-29] MEDS: VITAMIN B-12 1000 MCG PO (08:29)
[2024-09-29] MEDS: TOPROL XL 50 MG PO (08:29)
--- NOTE | 2024-09-29 08:31 | PTCARENOTE ---
0700 patient in bed . AAO x3 NSS at 80/hr Accu check 120/7 units NovoLog AC. no covarage per s/s
--- NOTE | 2024-09-29 08:45 | W.PN.VS ---
Addendum entered and electronically signed by Soy Jones MD 09/29/24 13:46:
Seen and examined with COMPONENT PREP OPERATOR earlier this a.m. This is a late entry. Agree with findings as noted below. Patient doing well without significant complaints. Groin puncture site flat. No hematoma. Feet both warm with palpable PT pulses. Plan/as
discussed and noted below.
Original Note:
Today's Communication / Plan
-
Seen and assessed with Dr. Jones
Assessment/Plan
-
POD 1.5 lysis, left MANISH VBX, left IEA Zilver stent
Plan:
-DC Wilkerson
-Out of bed/ambulate
-Switch anticoagulation to p.o.
-Appreciate cardiology, echo normal
-Cardiology recommends Heme/Onc for hypercoagulable workup
-Patient can follow-up with us in the vascular office
Subjective Data
-
Date of Service: September 29, 2024
Patient seen at bedside exam with Dr. Jones. Patient offers no complaints at this time. No events overnight. Continues on heparin drip.
Objective Data
-
Vital Signs
Temp Pulse Resp BP Pulse Ox
98.2 F 94 15 140/78 96
09/29/24 08:10 09/29/24 08:29 09/29/24 06:00 09/29/24 08:29 09/28/24 21:01
Intake and Output
09/28/24 09/29/24 09/30/24
06:59 06:59 06:59
Intake Total 1628 / 1642 3667 / 3667
Output Total 1265 / 1345 1390 / 1390
Balance 363 / 297 2277 / 2277
Intake:
Oral fluids 180 / 180 1920 / 1920
IV fluids (Total) 943 / 957 1747 / 1747
Alteplase 16 / 16
HEPARIN 32674 UNITS/250 ML 25, 93 / 107 242 / 242
000 units In 250 ml @ 500 UNITS
/HR 5 mls/hr ART SHEATH .Q24H
[facility] Rx#:[id number]
Normosol 250 / 250
Nss 1,000 ml @ 46 mls/hr INF 184 / 184
CATH .[id number] [facility] Rx#:[id number]
Nss 1,000 ml @ 80 mls/hr IV . 400 / 400
[id number] [facility] Rx#:[id number]
Nss 1,000 ml @ 80 mls/hr IV . 1440 / 1440
[id number] [facility] Rx#:[id number]
heparin 65 / 65
IV piggybacks 505 / 505
Output:
Urine, Wilkerson 1265 / 1345 1390 / 1390
Lab Results
09/29/24 06:22
09/29/24 06:22
Calcium 8.7 mg/dl (8.4-10.2) 09/29/24 06:22
Phosphorus 2.8 mg/dl (2.5-4.5) 09/28/24 06:01
Magnesium 2.0 mg/dl (1.6-2.3) 09/28/24 06:01
Total Bilirubin 0.6 mg/dl (0.2-1.3) 09/28/24 06:01
Direct Bilirubin 0.3 mg/dl (0.0-0.4) 09/28/24 06:01
AST 31 U/L (17-59) 09/28/24 06:01
ALT 25 U/L (0-50) 09/28/24 06:01
Alkaline Phosphatase 50 U/L (38-126) 09/28/24 06:01
Total Protein 5.8 g/dl (6.3-8.2) L 09/28/24 06:01
Albumin 3.1 g/dl (3.5-5.0) L 09/28/24 06:01
Physical Exam
-
AAOx3
No tachypnea on room air
No tachycardia
Abdomen soft
Groin site clean, dry, intact, soft, flat
Bilateral feet warm, pink, bilateral DP and PT pulses palpable
Wilkerson catheter with yellow urine this morning
[2024-09-29] MEDS: HEPARIN 2900 UNITS IV (08:56)
--- NOTE | 2024-09-29 09:19 | W.PN.CARDCBS ---
Today's Communication / Plan
-
Will discontinue IV heparin and start Eliquis
Consider outpatient hematologic evaluation for hypercoagulable workup
Impression / Plan
-
Primary Critical Care Clinical Nurse Specialist: Dr. Peralta
Assessment:
-Presentation with LLE pain
-LLE limb ischemia with left common iliac artery stent occlusion and left external iliac artery stent occlusion by angiogram 09/27/24 s/p lytic catheter placement with subsequent malfunction resulting in repeat angiogram and L MANISH and L EIA stents
09/28/24
-PAD with left lower extremity limb ischemia status post thromboembolectomy to left iliac, left popliteal and tibial arteries along with angioplasty/stenting of left common and external iliac arteries 01/2023
-LV thrombus by echo 01/2023 with resolution by echo 04/2023
-CAD s/p LAD PCI x2 05/2023
-Residual RCA disease, medically managed
-History of cardiomyopathy, EF 45 to 50%, improved by echo 08/2023
-HTN
-HLD
-DM2
-Active smoker
-History of ETOH use disorder
ECHO 02/18/23: EF 45 to 50%, moderate hypokinesis of apex and apical septum, apical inferior wall, apical thrombus measuring 1 x 0.72 x 0.65 cm, stage I diastolic dysfunction, no significant valvular disease
ECHO 05/11/2023: EF 45 to 50%, moderate hypokinesis of apex, apical septum and apical inferior wall, no thrombus identified in apex using Definity, no significant valvular disease
ECHO 09/10/2023: EF 55 to 60%, mild apical hypokinesis, MAC, trace MR, trace AR, trace TR, PAP 20 to 25 mmHg
Echocardiogram 09/28/2024: Ejection fraction 60%, mildly dilated aortic root measuring 4.0 cm, no LV thrombus noted
Plan:
Vascular surgery approved change to oral anticoagulation
Will discontinue IV heparin and start Eliquis
Consider outpatient hematology evaluation for hypercoagulable workup
Progress Note - Critical Care Clinical Nurse Specialist
Subjective
Date of Service: September 29, 2024
No complaints
Objective
Labs:
09/29/24 06:22
09/29/24 06:22
Labs
Hgb 12.7 g/dL (13.0-18.0) L 09/29/24 06:22
Hct 36.4 % (39.0-52.0) L 09/29/24 06:22
Plt Count 201 10^3/uL (130-400) 09/29/24 06:22
PT Cancelled 09/28/24 23:27
INR Cancelled 09/28/24 23:27
APTT 67.2 Sec (23.4-35.0) H 09/29/24 06:22
Sodium 135 mmol/L (135-145) 09/29/24 06:22
Potassium 3.9 mmol/L (3.5-5.1) 09/29/24 06:22
BUN 8 mg/dl (9-20) L 09/29/24 06:22
Creatinine 0.6 mg/dL (0.7-1.3) L 09/29/24 06:22
Glucose 116 mg/dl (70-99) H 09/29/24 06:22
Vital Signs and I&O:
Vital Signs
Temp Pulse Resp BP Pulse Ox
98.2 F 94 15 140/78 96
09/29/24 08:10 09/29/24 08:29 09/29/24 06:00 09/29/24 08:29 09/28/24 21:01
Vital Signs
Temp Pulse Resp BP Pulse Ox
98.2 F 94 15 140/78 96
09/29/24 08:10 09/29/24 08:29 09/29/24 06:00 09/29/24 08:29 09/28/24 21:01
Intake & Output
09/27/24 09/28/24 09/29/24 09/30/24
06:59 06:59 06:59 06:59
Intake Total 1628 / 1642 3667 / 3667 240 / 240
Output Total 1265 / 1345 1390 / 1390 350 / 350
Balance 363 / 297 2277 / 2277 -110 / -110
Physical Exam
Physical Exam
General: Well developed, well nourished in NAD.
Neck: Supple, no JVD, HJR, carotids +2 B/L, no bruits bilaterally.
Heart: Non displaced PMI, RRR, no murmurs, No S3, S4, no rubs.
Lungs: Clear to auscultation bilaterally, no wheeze, rhonchi, rubs bilaterally,
normal expiratory phase.
Extremities: No clubbing, cyanosis or edema bilaterally.
Neuro: Grossly nonfocal, awake, alert and oriented x3.
[2024-09-29] MEDS: ELIQUIS 5 MG PO ×2 (10:12→13:23)
--- NOTE | 2024-09-29 11:57 | CM ---
CM visited Leland at bedside today. He is hoping to go home today; his brother and [id number]-osr will drive him home at discharge.
Leland drove himself to the hospital, so they will drive him home and also drive his car home.
Leland was on Eliquis in the past, but will be restarting Eliquis. $10 copay card provided and he was thankful, stating his copay for Eliquis would be $130 without the copay card.
Plan: Discharge to home with no needs. Family to provide transport home.
[2024-09-29 12:25] LABS: Glucose - Point of Care 153 mg/dl (70-99)
--- NOTE | 2024-09-29 13:00 | PN.CDI ---
CDI
- -
CDI:
Physician Documentation Request
Admit Date: 09/27/24 16:09
Dear Doctor Berry,
Please review the following and provide your response in the progress notes.
Clinical Indicators:
PN, 09/28
#Acute limb ischemia left lower extremity
#...status post lytic catheter infusion (OR: 09/27/2024)
#...complicated by lytic catheter malfunction with subsequent
#...removal and stent placement x 2+ balloon angioplasty (POD#1)
#Acute anemia
Laboratory Tests
09/27/24 09/27/24 09/27/24
12:08 18:48 23:43
Hgb 14.5 12.9 L 13.3
09/28/24 09/28/24 09/29/24
02:05 06:01 06:22
Hgb 12.8 L 12.9 L 12.7 L
Based on the above and your clinical assessment, please clarify the condition/diagnosis evaluated, monitored and/or treated?
Acute blood loss anemia
Abnormal lab value, clinically insignificant
Other(please specify)
Use of terms such as suspected, likely, concern for, or probable (associated with a specific diagnosis that is being evaluated, monitored, or treated as if it exists) are acceptable and can be coded in the inpatient setting, when documented at the
time of discharge.
Thank you,
Rachel Muller RN BSN CCDS
CDI Specialist
please contact via tiger text
Please use your independent medical judgment in providing your response.
--- NOTE | 2024-09-29 13:15 | W.PN.HOSP.TC ---
Today's Communication/Plan
-
Discharge today
Assessment / Plan
Assessment / Plan
Physical Exam
General: Not in acute distress
HEENT: Normocephalic
Respiratory: CTAB
Cardiac: S1/S2, Regular Rhythm and Other (absent pulses in left lower extremity )
GI: Soft, Non Tender, Non Distended and Normal Bowel Sounds
Musculoskeletal: No Cyanosis and No Edema
Skin: Warm
Neuro: Awake, Alert, AO x 3 and Nonfocal/grossly intact
Psych: Calm and Intact Judgment/Insight
Assessment/Plan
#Acute limb ischemia left lower extremity status post lytic catheter infusion (OR: 09/27/2024) complicated by lytic catheter malfunction with subsequent removal and stent placement x 2+ balloon angioplasty (POD#1)
#History of left lower extremity arterial occlusion s/p thromboembolectomy + stent (January 2023)
#PAD
Abd CT (as per radiologist's report): There is occlusion of the left common iliac artery at its origin, involving the left common iliac artery stent. This occlusion extends throughout the left external iliac artery.
Opacification of the left common femoral artery due to collateral flow.
See above narrative for additional findings.
-Discontinue Wilkerson catheter
-Vascular Surgery recommendations appreciated
-Status post anticoagulation with heparin given suspected thrombi causing patient's lower extremity ischemia/recurrent
-Now on Eliquis, needs 13 more doses of Eliquis 10 mg BID, followed by 5 mg BID with follow-up with vascular team and cardiology
-Outpatient hematology evaluation for hypercoagulable workup
-Continue Aspirin
#Leukocytosis likely reactive due to above
#Acute anemia suspected associated with acute blood loss anemia
#LV apical thrombus seen on echo from 02/18/2023 - thrombus no longer seen on echo that was repeated on 09/28/2024
#Tobacco use disorder (currently smoking 4-5 cigarettes weekly, previously smoked 1 PPD x 40 years)
-Follow-up with [facility] pulm outpatient for lung cancer screening
#CAD s/p stent to LAD
#hyperlipidemia
- continue aspirin and rosuvastatin
#hypertension
- continue lisinopril and metoprolol
#type 2 diabetes
- continue insulin aspart and insulin glargine
- Accuchecks AC & HS
- SSI
Code Status: Full code
DVT Prophylaxis: Eliquis
More than 30 minutes spent in discharge including
Final examination of the patient
Summarizing hospital stay
Instructions for continuing care to all relevant caregivers
Preparation of discharge records, prescriptions, and referral forms
Total time spent (in minutes): 39
Anticipated Discharge: Today
Subjective/Interval History
-
Date of Service: September 29, 2024
Patient was seen and examined. He reported no pain anywhere, denied any other complaints and is looking forward to going home today.
Objective Data
-
Labs:
Laboratory Results
09/29/24 09/29/24
06:22 15:00
WBC 12.4 H
Hgb 12.7 L
Hct 36.4 L
Plt Count 201
APTT 67.2 H Cancelled
Sodium 135
Potassium 3.9
Chloride 104
Carbon Dioxide 23
BUN 8 L
Creatinine 0.6 L
Glucose 116 H
Calcium 8.7
Vital Signs:
Vital Signs
Temp Pulse Resp BP Pulse Ox
98.3 F 94 15 140/78 96
09/29/24 12:27 09/29/24 08:29 09/29/24 06:00 09/29/24 08:29 09/28/24 21:01
I&O
09/28/24 09/29/24 09/30/24
06:59 06:59 06:59
Intake Total 1628 / 1642 3667 / 3667 240 / 240
Output Total 1265 / 1345 1390 / 1390 350 / 350
Balance 363 / 297 2277 / 2277 -110 / -110
[2024-09-29] MEDS: NOVOLOG FLEXPEN-LOW RESISTANCE 1 UNITS SC (13:17)
--- NOTE | 2024-09-29 15:00 | PTCARENOTE ---
Patient d/c to home. All discharge instruction went over with patient. patient is aware to take Eliquis 10 mg BID until 10/05 then Eliquis 5 mg BID. peripheral lines RT ac and left fA removed. transportation will be provided by patient's brother.
== END 2024-09-29 15:17 | disposition home or self-care (01) | DRG 253 ==
LOC: ICU 16:09
PROVIDERS: Nurse Practitioner; Nurse Practitioner Family; Physician Assistant; Surgery Vascular Surgery; ADMITTING PHYSICIAN Hospitalist; CONSULT PHYSICIAN Internal Medicine Cardiovascular Disease; CONSULT PHYSICIAN Internal Medicine Critical Care Medicine; EMERGENCY PHYSICIAN Emergency Medicine; FAMILY PHYSICIAN Nurse Practitioner Family; OTHER PHYSICIAN Surgery
PROC: B41D1ZZ Fluoroscopy of Aorta and Bilateral Lower Extremity Arteries using Low Osmolar Contrast (ICD-10-PCS; 2024-09-27)
PROC: 3E05317 Introduction of Other Thrombolytic into Peripheral Artery, Percutaneous Approach (ICD-10-PCS; 2024-09-27)
PROC: 047D34Z Dilation of Left Common Iliac Artery with Drug-eluting Intraluminal Device, Percutaneous Approach (ICD-10-PCS; 2024-09-28)
PROC: 047J34Z Dilation of Left External Iliac Artery with Drug-eluting Intraluminal Device, Percutaneous Approach (ICD-10-PCS; 2024-09-28)
PROC: B41G1ZZ Fluoroscopy of Left Lower Extremity Arteries using Low Osmolar Contrast (ICD-10-PCS; 2024-09-28)
DX: T82.898A Other specified complication of vascular prosthetic devices, implants and grafts, initial encounter (principal); D62 Acute posthemorrhagic anemia; I42.9 Cardiomyopathy, unspecified; I74.3 Embolism and thrombosis of arteries of the lower extremities; E11.51 Type 2 diabetes mellitus with diabetic peripheral angiopathy without gangrene; E78.5 Hyperlipidemia, unspecified; I25.10 Atherosclerotic heart disease of native coronary artery without angina pectoris; I70.212 Atherosclerosis of native arteries of extremities with intermittent claudication, left leg; I10 Essential (primary) hypertension; I51.3 Intracardiac thrombosis, not elsewhere classified; F17.210 Nicotine dependence, cigarettes, uncomplicated; I70.8 Atherosclerosis of other arteries; Y83.1 Surgical operation with implant of artificial internal device as the cause of abnormal reaction of the patient, or of later complication, without mention of misadventure at the time of the procedure; Z79.4 Long term (current) use of insulin; Z79.82 Long term (current) use of aspirin; Z79.899 Other long term (current) drug therapy; Z82.49 Family history of ischemic heart disease and other diseases of the circulatory system; Z86.718 Personal history of other venous thrombosis and embolism; Z95.5 Presence of coronary angioplasty implant and graft
CPT/HCPCS: 36247; 37211; 37214; 37221; 37223; 71045; 73630; 75625; 75635; 75716; 80048; 80053; 82248; 82962; 83036; 83735; 84100; 85014; 85018; 85025; 85027; 85049; 85384; 85610; 85730; 93005; 93306; 93971; 96374; 96375; 96376; 97116; 97163; 97166; 99285; C1751; C1769; C1874; C1876; C1894; J2997; Q9967

== ENCOUNTER → 2024-11-04 07:26 | Outpatient (REF) | payer OTHER, SELFPAY ==
[2024-11-04 08:31] LABS: % Eosinophils 2.4 % (0-6); % Immature Granulocytes 0.5 % (0-0.5); % Lymphocytes 31.2 % (20.5-51.1); % Monocytes 8.9 % (1.7-9.3); Absolute Basophils 0.1 10^3/uL (0-0.2); Absolute Eosinophils 0.3 10^3/uL (0-0.7); Absolute Immature Granulocytes 0.1 10^3/uL (0-0.05); Absolute Lymphocytes 3.3 10^3/uL (1.2-3.4); Absolute Monocytes 0.9 10^3/uL (0.1-0.6); Absolute Neutrophils 5.9 10^3/uL (1.4-6.5); Hematocrit 47.9 % (39.0-52.0); Hemoglobin 16.2 g/dL (13.0-18.0); Mean Corp Hgb Conc. 33.8 g/dL (33.0-37.0); Mean Corpuscular Volume 94.7 fL (80.0-94.0); Nucleated Red Blood Cells % 0 % (-); Platelet Count 354 10^3/uL (130-400); Red Blood Cell Count 5.06 10^6/uL (4.70-6.10); Red Cell Dist. Width 13.9 % (11.5-14.5); White Blood Cell Count 10.6 10^3/uL (4.8-10.8)
[2024-11-04 08:57] LABS: ALT (SGPT) 37 U/L (0-50); AST (SGOT) 32 U/L (17-59); Albumin 5.1 g/dl (3.5-5.0); Alkaline Phosphatase 67 U/L (38-126); Blood Urea Nitrogen 27 mg/dl (9-20); Calcium 10.4 mg/dl (8.4-10.2); Carbon Dioxide 25 mmol/L (22-30); Chloride 101 mmol/L (98-107); Glucose 206 mg/dl (70-99); Potassium 4.7 mmol/L (3.5-5.1); Sodium 138 mmol/L (135-145); Total Bilirubin 0.5 mg/dl (0.2-1.3); Total Protein 8.5 g/dl (6.3-8.2); eGFR > 60.00
[2024-11-04 09:09] LABS: C-Reactive Protein < 5.00 mg/L (0.0-10.00)
[2024-11-04 09:10] LABS: Urine Albumin Negative (Neg - Trace); Urine Bilirubin Negative (Negative); Urine Character Clear (Clear); Urine Color Yellow; Urine Glucose Negative (Negative); Urine Ketone Negative (Negative); Urine Leukocyte Negative (Negative); Urine Nitrite Negative (Negative); Urine Occult Blood Negative (Negative); Urine Urobilinogen Negative (Neg - 1+)
[2024-11-04 09:20] LABS: Protein/creatinine Ratio 0.1; Urine Protein 8 mg/dl
[2024-11-04 09:34] LABS: Erythrocyte Sed Rate 18 mm/hour (0-20)
[2024-11-06 01:18] LABS: F-Actin Antibody IgG 22 Units (0-19); Mitochondrial M2 Ab, IgG 106.4 Units (0.0-24.9)
[2024-11-06 01:25] LABS: ds-DNA Ab, IgG Reflex To Titer 38 IU (0-24)
[2024-11-06 07:50] LABS: Cardiolipin IgA Antibody <10 APL (<=11); Cardiolipin IgM Antibody <10 MPL (<=12); Cardiolipin Igg Antibody <10 GPL (<=14)
[2024-11-07 05:06] LABS: Complement C3 147 mg/dl (88-165)
== END ==
LOC: REG 07:26
PROVIDERS: ATTENDING PHYSICIAN Internal Medicine Rheumatology; FAMILY PHYSICIAN Nurse Practitioner Family
DX: K75.4 Autoimmune hepatitis (principal); M05.9 Rheumatoid arthritis with rheumatoid factor, unspecified; R76.8 Other specified abnormal immunological findings in serum
CPT/HCPCS: 36415; 80053; 81003; 82570; 84156; 85025; 85610; 85613; 85652; 85730; 86015; 86140; 86147; 86160; 86225; 86381

== ENCOUNTER → 2024-11-07 10:56 | Outpatient (REF) | payer OTHER, SELFPAY | LOC: RAD 10:56 | PROVIDERS: ATTENDING PHYSICIAN Registered Nurse; FAMILY PHYSICIAN Nurse Practitioner Family | DX: I77.9 Disorder of arteries and arterioles, unspecified (principal) | CPT/HCPCS: 93922; 93925 ==

== ENCOUNTER → 2024-11-21 09:50 | Outpatient (REF) | payer OTHER, SELFPAY | LOC: DHVS 09:50 | PROVIDERS: ATTENDING PHYSICIAN Registered Nurse | DX: I77.9 Disorder of arteries and arterioles, unspecified (principal); I74.5 Embolism and thrombosis of iliac artery | CPT/HCPCS: 93978 ==

== ENCOUNTER → 2024-11-30 06:58 | Outpatient (REF) | payer OTHER, SELFPAY ==
[2024-11-30 08:45] LABS: Vitamin D, 25-OH*** 41.3 ng/mL (30-80)
[2024-11-30 08:58] LABS: PSA, Total - Screen 1.61 ng/ml (0.0-4.0)
== END ==
LOC: REG 06:58
PROVIDERS: ATTENDING PHYSICIAN Nurse Practitioner Family
DX: Z12.5 Encounter for screening for malignant neoplasm of prostate (principal); E56.9 Vitamin deficiency, unspecified
CPT/HCPCS: 36415; 82306; G0103

== ENCOUNTER → 2025-03-08 06:55 | Outpatient (REF) | payer OTHER, SELFPAY ==
[2025-03-08 07:53] LABS: % Basophils 0.9 % (0-2); % Eosinophils 1.9 % (0-6); % Immature Granulocytes 0.4 % (0-0.5); % Lymphocytes 40.9 % (20.5-51.1); % Monocytes 7.1 % (1.7-9.3); % Neutrophils 48.8 % (42.2-75.2); Absolute Basophils 0.1 10^3/uL (0-0.2); Absolute Eosinophils 0.2 10^3/uL (0-0.7); Absolute Immature Granulocytes 0.1 10^3/uL (0-0.05); Absolute Lymphocytes 5.2 10^3/uL (1.2-3.4); Absolute Monocytes 0.9 10^3/uL (0.1-0.6); Absolute Neutrophils 6.2 10^3/uL (1.4-6.5); Hematocrit 45.8 % (39.0-52.0); Hemoglobin 15.8 g/dL (13.0-18.0); Mean Corp Hgb Conc. 34.5 g/dL (33.0-37.0); Mean Corpuscular Hgb 32.2 pg (27.0-31.0); Mean Corpuscular Volume 93.5 fL (80.0-94.0); Mean Platelet Volume 9.3 fL (7.4-10.4); Nucleated Red Blood Cells % 0 % (-); Platelet Count 318 10^3/uL (130-400); Red Cell Dist. Width 14.7 % (11.5-14.5); White Blood Cell Count 12.7 10^3/uL (4.8-10.8)
[2025-03-08 08:03] LABS: ALT (SGPT) 33 U/L (0-50); AST (SGOT) 27 U/L (17-59); Albumin 3.9 g/dl (3.5-5.0); Alkaline Phosphatase 50 U/L (38-126); Blood Urea Nitrogen 18 mg/dl (9-20); Calcium 9.7 mg/dl (8.4-10.2); Carbon Dioxide 29 mmol/L (22-30); Chloride 105 mmol/L (98-107); Glucose 192 mg/dl (70-99); Sodium 140 mmol/L (135-145); eGFR > 60.00
[2025-03-08 08:24] LABS: Total Bilirubin 0.6 mg/dl (0.2-1.3)
[2025-03-08 09:05] LABS: Glycohemoglobin (HgbA1c) 7.3 % (4.0-5.6)
== END ==
LOC: REG 06:55
PROVIDERS: ATTENDING PHYSICIAN Physician Assistant; FAMILY PHYSICIAN Nurse Practitioner Family
DX: E11.65 Type 2 diabetes mellitus with hyperglycemia (principal)
CPT/HCPCS: 36415; 80053; 83036; 85025

== ENCOUNTER → 2025-05-09 13:54 | Outpatient (REF) | payer OTHER, SELFPAY | LOC: RAD 13:54 | PROVIDERS: ATTENDING PHYSICIAN Registered Nurse; FAMILY PHYSICIAN Nurse Practitioner Family | DX: I74.5 Embolism and thrombosis of iliac artery (principal); I77.9 Disorder of arteries and arterioles, unspecified | CPT/HCPCS: 93922; 93925; 93978 ==

== ENCOUNTER → 2025-06-08 06:51 | Outpatient (REF) | payer OTHER, SELFPAY ==
[2025-06-08 07:46] LABS: Hematocrit 44.3 % (39.0-52.0); Hemoglobin 15.1 g/dL (13.0-18.0); Mean Corp Hgb Conc. 34.1 g/dL (33.0-37.0); Mean Corpuscular Volume 94.1 fL (80.0-94.0); Nucleated Red Blood Cells % 0 % (-); Platelet Count 265 10^3/uL (130-400); Red Cell Dist. Width 14.3 % (11.5-14.5)
[2025-06-08 08:02] LABS: ALT (SGPT) 34 U/L (0-50); AST (SGOT) 39 U/L (17-59); Albumin 4.5 g/dl (3.5-5.0); Alkaline Phosphatase 52 U/L (38-126); Blood Urea Nitrogen 16 mg/dl (9-20); Calcium 10.0 mg/dl (8.4-10.2); Carbon Dioxide 20 mmol/L (22-30); Chloride 108 mmol/L (98-107); Glucose 178 mg/dl (70-99); HDL Cholesterol 87 mg/dl; LDL Cholesterol, Calculated 47 mg/dl; Potassium 4.2 mmol/L (3.5-5.1); Sodium 138 mmol/L (135-145); Total Protein 7.3 g/dl (6.3-8.2); Very Low Density Lipoprotein 18 mg/dl (0-30); eGFR > 60.00
[2025-06-08 09:43] LABS: Microalbumin, Random Urine 5.4 mg/dl (0.6-1.7)
[2025-06-08 09:46] LABS: Microalb - Urine Creatinine 140.500 mg/dl
[2025-06-08 16:10] LABS: Glycohemoglobin (HgbA1c) 7.0 % (4.0-5.6)
== END ==
LOC: REG 06:51
PROVIDERS: ATTENDING PHYSICIAN Physician Assistant; FAMILY PHYSICIAN Nurse Practitioner Family
DX: E11.65 Type 2 diabetes mellitus with hyperglycemia (principal); E11.9 Type 2 diabetes mellitus without complications; I25.10 Atherosclerotic heart disease of native coronary artery without angina pectoris; Z98.61 Coronary angioplasty status; Z98.62 Peripheral vascular angioplasty status; I73.9 Peripheral vascular disease, unspecified; I74.9 Embolism and thrombosis of unspecified artery; I10 Essential (primary) hypertension; E78.2 Mixed hyperlipidemia; F17.200 Nicotine dependence, unspecified, uncomplicated; R20.8 Other disturbances of skin sensation; Z13.89 Encounter for screening for other disorder; Z01.89 Encounter for other specified special examinations
CPT/HCPCS: 80053; 80061; 82043; 82570; 83036; 84443; 85025

== ENCOUNTER → 2025-06-27 12:38 | Outpatient (REF) | payer OTHER, SELFPAY | LOC: RAD 12:38 | PROVIDERS: ATTENDING PHYSICIAN Nurse Practitioner Family | DX: M25.511 Pain in right shoulder (principal) | CPT/HCPCS: 73030 ==

== ENCOUNTER → 2025-08-09 13:48 | Outpatient (REF) | payer OTHER, SELFPAY | LOC: RCS 13:48 | PROVIDERS: ATTENDING PHYSICIAN Internal Medicine Cardiovascular Disease; FAMILY PHYSICIAN Nurse Practitioner Family | DX: I51.3 Intracardiac thrombosis, not elsewhere classified (principal) | CPT/HCPCS: 93306 ==

== ENCOUNTER → 2025-09-07 08:48 | Outpatient (REF) | payer OTHER, SELFPAY ==
[2025-09-07 09:34] LABS: Hematocrit 47.3 % (39.0-52.0); Hemoglobin 15.7 g/dL (13.0-18.0); Mean Corp Hgb Conc. 33.2 g/dL (33.0-37.0); Mean Corpuscular Volume 97.3 fL (80.0-94.0); Nucleated Red Blood Cells % 0 % (-); Platelet Count 254 10^3/uL (130-400); Red Cell Dist. Width 13.5 % (11.5-14.5)
[2025-09-07 09:37] LABS: Urine Character Clear (Clear)
[2025-09-07 10:29] LABS: C-Reactive Protein < 5.00 mg/L (0.0-10.00)
[2025-09-07 10:36] LABS: ALT (SGPT) 33 U/L (0-50); AST (SGOT) 34 U/L (17-59); Albumin 4.4 g/dl (3.5-5.0); Alkaline Phosphatase 42 U/L (38-126); Blood Urea Nitrogen 14 mg/dl (9-20); Calcium 9.9 mg/dl (8.4-10.2); Carbon Dioxide 27 mmol/L (22-30); Chloride 101 mmol/L (98-107); Glucose 226 mg/dl (70-99); Potassium 4.8 mmol/L (3.5-5.1); Sodium 136 mmol/L (135-145); Total Protein 7.3 g/dl (6.3-8.2); eGFR > 60.00
[2025-09-07 11:05] LABS: Urine Squamous Cell 0-2 /LPF (Few); Urine Urothelial Cell 0-2 /LPF (FEW)
[2025-09-07 11:06] LABS: Urine Red Blood Cell 0-2 /HPF (0-2); Urine White Cell 0-2 /HPF (0-5)
[2025-09-09 16:12] LABS: Beta-2-Glycoprotein I Ab. IgA <10 SAU (<=20)
[2025-09-09 19:35] LABS: ds-DNA Ab, IgG Reflex To Titer 21 IU (0-24)
== END ==
LOC: REG 08:48
PROVIDERS: ATTENDING PHYSICIAN Internal Medicine Rheumatology; FAMILY PHYSICIAN Nurse Practitioner Family
DX: R76.81 Abnormal rheumatoid factor and anti-citrullinated protein antibody without rheumatoid arthritis (principal)
CPT/HCPCS: 36415; 80053; 81003; 81015; 85025; 85652; 86140; 86146; 86160; 86225